=== PATIENT | female | born 1950 | race Asian ===

== ENCOUNTER 2025-04-27 06:53 | Observation (INO) ==
--- NOTE | 2025-04-23 16:12 | Anesthesiology Consultation ---
Date of Service April 23, 2025 Assessment & Plan (1) Encounter for pre-operative examination: - Check BSG DOS - Infectious disease screening: Per assessment on 04/23/25- No known recent infectious disease contacts or current infectious disease symptoms. Chart Review Chart Review: Acceptable Risk for Surgery and Patient NOT seen in Pre Admission Testing History Surgery Operation Date: 04/27/25 09:30 Proposed Procedures p Bilateral Mastectomies with Bilateral [place] Axillary Lymph Node Biopsies - Nic Sterling MD Height/Weight Height: 4 ft 9 in Weight: 81.647 kg Allergies Allergy/AdvReac Type Severity Reaction Status Date / Time No Known Allergies Allergy Verified 04/23/25 15:02 Medications Home Medications Medication Instructions Recorded Confirmed Last Taken allopurinol 100 mg tablet 100 mg PO DAILY 04/18/23 04/23/25 Unknown atorvastatin 10 mg tablet 10 mg PO DAILY 04/18/23 04/23/25 Unknown insulin aspart U-100 100 unit/mL See Rx Instructions .Route .COMPLEX 04/18/23 04/23/25 04/18/23 (3 mL) subcutaneous pen insulin glargine 100 unit/mL (3 20 unit subcut HS 04/18/23 04/23/25 Unknown mL) subcutaneous pen (Lantus Solostar U-100 Insulin) levothyroxine 50 mcg tablet 50 mcg PO DAILY 04/18/23 04/23/25 04/18/23 lisinopril 20 mg tablet 20 mg PO DAILY 04/18/23 04/23/25 Unknown omeprazole 40 mg capsule,delayed 40 mg PO DAILY 04/18/23 04/23/25 04/18/23 release furosemide 20 mg tablet 20 mg PO BID 01/05/25 04/23/25 Unknown metformin 500 mg tablet 500 mg PO BID 01/05/25 04/23/25 Unknown sodium hyaluronate (viscosup) 10 See Rx Instructions .Route .COMPLEX 01/05/25 04/23/25 Unknown mg/mL(mw 2.4-3.6 million)intra-articular syringe (Euflexxa) gabapentin 300 mg capsule 200 mg PO BID 02/15/25 04/23/25 Unknown aripiprazole 2 mg tablet 2 mg PO QAM 04/23/25 04/23/25 Unknown Past Medical History Medical History Anemia Anxiety and depression Arthritis Breast cancer new dx Carpal tunnel syndrome of left wrist DDD (degenerative disc disease), cervical GERD (gastroesophageal reflux disease) Hearing loss HTN (hypertension) Hyperlipidemia Hypothyroid Knee pain Lumbar radicular pain Lumbar radiculopathy Muscular deconditioning Pedal edema Peripheral edema PMR (polymyalgia rheumatica) Type 2 diabetes mellitus IDDM Past Surgical History Surgical History H/O breast biopsy History of cataract surgery Social History Smoking Status: Never smoker Do You Dip or Chew Tobacco: No Hx Alcohol Use: No Hx Substance Use: No Testing Laboratory Results 03/26/25 WBC 10.86 H/H 11.6/38.0 PLATELETS 367 SODIUM 138 POTASSIUM 4.4 CHLORIDE 97 CO2 26 BUN 24 CREATININE 1.1 GLUCOSE 105 Electrocardiogram Date: 10/30/24 SR with premature supraventricular complexes. 80bpm. Low voltage QRS, consider pulmonary disease, pericardial effusion, or normal variant. Chest X-Ray Date: 08/20/24 Mild pulmonary vascular congestion. No pleural effusion or pneumothorax.
[2025-04-27] MEDS ORDERED: ONDANSETRON INJ 2 MG/ML 2 ML VIAL ONE (07:42)
[2025-04-27] MEDS ORDERED: DEXAMETHASONE SOD INJ 4 MG/ML VIAL ONE (07:42)
[2025-04-27] MEDS ORDERED: ROCURONIUM BROMIDE 10 MG/ML 5 ML VIAL IV ONE (07:42)
[2025-04-27] MEDS ORDERED: PROPOFOL IV EMULSION 10 MG/ML 20 ML VIAL IV ONE (07:42)
[2025-04-27] MEDS ORDERED: SUGAMMADEX SODIUM 200 MG/2 ML VIAL IV ONE (07:43)
[2025-04-27] MEDS ORDERED: MIDAZOLAM HCL 1 MG/ML 2ML VIAL ONE (07:43)
[2025-04-27] MEDS: LACTATED RINGER'S 1,000 ML IV SCH (07:44)
--- NOTE | 2025-04-27 08:24 | History & Physical Bridge Note ---
Date of Service April 27, 2025 History & Physical Bridge Note I have examined the patient, reviewed the History & Physical and in the interval since the performance of the History & Physical I have noted the following changes of clinical significance: no changes noted
--- NOTE | 2025-04-27 09:54 | Nuclear Medicine Report ---
IR sentinel node inject only, IR sentinel node inject only CLINICAL HISTORY: BREAST CA RADIOPHARMACEUTICAL ADMINISTERED: 559.8 uCi technetium 99m lymphoseek was injected in 5 parts subdermally periareolar right breast. 568.8 uCi technetium 99 M. lymphoseek was injected in 5 parts subdermally periareolar left breast: COMPARISON STUDY: None FINDINGS: Both breasts were prepped in standard sterile fashion. The radiopharmaceutical was injected in 5 parts subdermally periareolar right breast. The radiopharmaceutical was injected in 5 parts sub dermally periareolar left breast. IMPRESSION: Bilateral breast lymphoscintigraphy. ACT 112: Negative or not required by law. Electronically signed by: Dave Carmona M.D. 04/27/2025 9:53 AM
[2025-04-27] MEDS ORDERED: PHENYLEPHRINE 100MCG/ML 5ML SYR ONE (10:03)
[2025-04-27] MEDS: BUPIVACAINE 0.5 % 5 MG/1 ML MPF 30ML VIAL ONE (11:43)
[2025-04-27] MEDS: BUPIVACAINE LIPOSOME 1.3% 266 MG/20 ML VIAL ONE (11:44)
--- NOTE | 2025-04-27 13:04 | Operative Report ---
Post Operative Report Pre & Post Diagnosis Operation Date: 04/27/25 09:30 Pre-Op Diagnosis: Malignant Neoplasm Upper Outer Quadrant Both Breast Post-Op Diagnosis: Malignant Neoplasm Upper Outer Quadrant Both Breast I identified the patient and participated in the time-out.: Yes Procedure Operation Date: 04/27/25 09:30 Actual Procedures p Bilateral Simple Mastectomy, Bilateral [place] Lymph Node Biopsy(Bilateral) - Nic Sterling MD Surgeon Nic Sterling MD Dry Pan Feeder MABEL Lucia assisted with tissue retraction, camera op, closure Estimated Blood Loss 15 Findings Consistent with Post-Op Diagnosis 2 sentinel lymph nodes removed on the left; 1 sentinel lymph node removed on the right Specimens #1. Left breast 2. Left sentinel lymph node, 132 count 3. Left sentinel lymph node #2, 25 count 4. Right breast 5. Right sentinel lymph node #1, 311 count 6. Additional right breast medial tissue 7. additional right breast inferior tissue Drains 2 #10 flat MAE drains Anesthesia Type General Complications none Description of Procedure patient was taken to the operating room, placed supine on the operating table. A timeout was performed, perioperative antibiotics were administered, SCD boots were placed. After adequate anesthesia and analgesia was obtained, the chest from neck to abdomen and from side of bed to side of bed was prepped and draped in the normal sterile fashion. Elliptical incisions were drawn out on the bilateral breast and measured. We began on the left side. Incision was made along the elliptical incision lines with a 15 blade scalpel and carried into the subcutaneous tissue. Using a traction countertraction technique with rakes and pressure, the breast tissue was dissected free from the above skin and subcutaneous tissue. This was done with the electrocautery. Small bleeders were taken with the harmonic scalpel. The limits of the dissection where the clavicle superiorly, the sternum medially, the rectus sheath fascia inferiorly, and the axillary fat pad laterally. Once the dissection was complete, the breast was removed from the underlying pectoralis major muscle with the electrocautery, taking care to remove the fascia. The breast was oriented with sutures and sent off the field for specimen. We then turned our attention to the left axilla. Using the neoprobe, we were able to identify a sentinel lymph node. . The count on the sentinel lymph node was 131. The lymphatics were taken with the harmonic scalpel. A second sentinel lymph node was identified and dissected free circumferentially and removed. The count on this node was 21. Further dissection within the axillary fat pad did not yield any further lymph nodes. The background radiation count was 8. Attention was turned to hemostasis, the wound was copiously irrigated and suctioned free. A 30 cc mixture of Exparel, bupivacaine, and saline was injected into the flaps and the underlying pectoralis major muscle. Again hemostasis was checked and attended to and was excellent. a 10 [place] flat MAE drain was placed through separate stab incision and secured with a 3-0 silk suture. The subcutaneous tissue was closed with interrupted 3-0 Vicryl. The skin was closed with a running 4-0 Monocryl subcuticular stitch. Dermabond was applied. We then turned our attention to the right side. Incision was made along the elliptical incision lines On the right sidewith a 15 blade scalpel and carried into the subcutaneous tissue. Using a traction countertraction technique with rakes and pressure, the breast tissue was dissected free from the above skin and subcutaneous tissue. This was done with the electrocautery. Small bleeders were taken with the harmonic scalpel. The limits of the dissection where the clavicle superiorly, the sternum medially, the rectus sheath fascia inferiorly, and the axillary fat pad laterally. Once the dissection was complete, the breast was removed from the underlying pectoralis major muscle with the electrocautery, taking care to remove the fascia. The breast was oriented with sutures and sent off the field for specimen. We then turned our attention to the right axilla. dissection and th e axillary fat pad yielded 1 sentinel lymph node with a count of 311. This was dissected free circumferentially and the lymphatics were taken with the harmonic scalpel. Further dissection within the axillary fat did not yield any further lymph nodes. The background count was 4. Attention was turned to hemostasis, the wound was copiously irrigated and suctioned free. A 30 cc mixture of Exparel, bupivacaine, and saline was injected into the flaps and the underlying pectoralis major muscle. Again hemostasis was checked and attended to and was excellent. A 10 [place] flat MAE drain was placed through a separate stab incision and secured with a 3-0 silk suture. The subcutaneous tissue was closed with interrupted 3-0 Vicryl. The skin was closed with a running 4-0 Monocryl subcuticular stitch. Dermabond was applied. Dressings were applied. the patient tolerated the procedure without complication was transferred in stable condition to the PACU. All instrument, needle, and sponge counts were correct at the end of the case. My graphic design assistant was necessary throughout the procedure for tissue retraction, possible camera operation, and closure of the wounds. I understand that section 1842(b)(7)(D) of the Social Security act generally prohibits Medicare physician fee schedule payment for the services of assistants at surgery in teaching hospitals when qualified residents are available to furnish such services. I certify that the services for which payment is claimed were medically necessary and that no qualified resident was available to perform the services. I further understand that these services are subject to postpayment review by the Medicare carrier. I attest to the content of the Intraoperative Record and any orders documented therein. Any exceptions are noted below.
[2025-04-27] MEDS: ONDANSETRON INJ 2 MG/ML 2 ML VIAL IV PRN (13:28)
[2025-04-27] MEDS ORDERED: ATROPINE SULFATE 0.1 MG/ML 10ML SYR IV PRN (13:31)
[2025-04-27] MEDS ORDERED: DEXAMETHASONE SOD INJ 4 MG/ML VIAL IV PRN (13:31)
[2025-04-27] MEDS ORDERED: HYDROmorphone INJ 2 MG/ML SYR/VIAL IV PRN (13:31)
--- NOTE | 2025-04-27 13:32 | Consultation ---
Date of Consultation April 27, 2025 Assessment & Plan (1) Breast cancer: (2) S/P bilateral mastectomy: (3) Anemia: (4) Type 2 diabetes mellitus: (5) HTN (hypertension): (6) Hyperlipidemia: (7) Hypothyroid: (8) GERD (gastroesophageal reflux disease): (9) Anxiety and depression: Plan 74 year old female with PMH significant for type 2 diabetes, dyslipidemia, hypothyroidism, hypertension, diastolic dysfunction, obesity, GERD, CKD IIIa, PMR, osteoarthritis, lumbar DDD, senile osteoporosis, polyneuropathy, anemia, depression, and infiltrating ductal carcinoma of the left breast who is s/p bilateral mastectomy and bilateral sentinel lymph node biopsy by Dr Nic Sterling on 04/27/2025. We have been consulted for post operative medical management. Infiltrating ductal carcinoma of left breast s/p bilateral mastectomy and bilateral sentinel lymph node biopsy POD#0 bilateral mastectomy and bilateral sentinel lymph node biopsy by Dr Nic Sterling on 04/27/2025 Activity level, pain control, DVT prophylaxis, bowel regimen per primary team *see HPI for details of breast cancer diagnosis* Anemia Monitor post op labs for acute blood loss anemia Preop Hgb 11.6 EBL 15mL Monitor MAE drain output Type 2 diabetes A1C 7.2 in Aug 2024 On metformin and insulin at home BSG ACHS and SSI while inpatient Glycemic pharmacy consult Hypertension Continue lisinopril and lasix Hyperlipidemia Continue atorvastatin Hypothyroidism Continue levothyroxine GERD Continue PPI and pepcid Depression/anxiety Continue aripiprazole CKD III Baseline creat appears to be around 1.1 per record review Monitor BMP in am DVT Prophylaxis: SQ lovenox and SCDs per primary team Code Status: FULL CODE PCP: Jo Sainz Patient seen in collaboration with Dr Neff. Please see addendum. I spent a total of 70 minutes coordinating, documenting and providing care for this patient excluding time spent in the performance of separately billed services or time spent by another provider/QHP. Thank you for this consultation. We will continue to follow this patient with you. [facility] available [facility] via the role in [employer] - please don't hesitate to reach out with questions. Supervising Physician Co-Signing Physician Notes Attending Addendum: Case reviewed with the advanced practitioner. I have personally performed a history and physical examination on the patient. I have reviewed the advanced practitioner's documentation on the date of service referenced in note, and I agree with, and take responsibility for the plan of care. please refer to her notes for full details patient seen and examined, records reviewed by myself as well on exam, patient seen resting in bed, daughter in law assisting with translation states she feels fine overall surgical site pain adequately controlled reports L sided abdominal discomfort last BM yesterday no nausea/vomiting, chills no other symptoms VS noted and reviewed oriented x3, not in distress, speaks in sentences with no effort nor accessory muscle use normal rate, regular rhythm, no murmurs clear breath sounds bilaterally non distended, soft, (+) mild L quadrant tenderness no bipedal edema, erythema, warmth no neuro deficits all labs, imaging noted and reviewed ASSESSMENT AND PLAN> diagnoses and plan of care as per advanced practitioner's notes, with addendum as follows: Mild OZIEL hold Lisinopril encouraged to increase oral fluid intake Left sided abdominal pain CT abdomen: no acute findings bowel regimen daily Abnormal CT findings coronary artery calcifications cholelithiasis Further work up, management, and ff up as outpatient I spent a total of 40 minutes coordinating, documenting, and providing care for this patient, excluding time spent in the performance of separately billed services or time spent by another provider/QHP. Michael Neff MD History of Present Illness Requesting Physician: Nic Sterling MD Reason for Consultation: Post operative medical management Attending Physician: Nic Sterling MD History of Present Illness 74 year old female with PMH significant for type 2 diabetes, dyslipidemia, hypothyroidism, hypertension, diastolic dysfunction, obesity, GERD, CKD IIIa, PMR, osteoarthritis, lumbar DDD, senile osteoporosis, polyneuropathy, anemia, depression, and infiltrating ductal carcinoma of the left breast who is s/p bilateral mastectomy and bilateral sentinel lymph node biopsy by Dr Nic Sterling on 04/27/2025. We have been consulted for post operative medical management. Breast cancer diagnosis: Underwent bilateral breast screening mammogram in January 2025 which revealed left breast asymmetry changes. Underwent left breast diagnostic mammogram which revealed carcinoma of left upper outer quadrant. Underwent core biopsy which demonstrated intermediate grade invasive ductal carcinoma. Referred to Surgery Dr Nic Sterling by PCP. Underwent second look ultrasound and biopsy which revealed a second infiltrating ductal carcinoma in left upper outer quadrant. Underwent breast MRI on 04/01/2025 which revealed a mass in the right inner quadrant that was biopsied and also determined to be invasive ductal carcinoma. Dr Sterling referred to Heme Onc Dr Ovidio Vanegas who recommended surgical intervention with Dr. Nic Sterling with plan to follow up 2 weeks after surgery to discuss adjuvant treatment options. Patient was seen in her inpatient room post operatively. History obtained with assistance of patient's daughter in law, who was able to translate as patient speaks Mavis. She is complaining of pain at her breasts, fatigue, and nausea. Denies dizziness, lightheadedness, chest pain, SOB, abdominal pain. Allergies Allergy/AdvReac Type Severity Reaction Status Date / Time No Known Allergies Allergy Verified 04/27/25 07:05 Home Medications Medication Instructions Recorded Confirmed Type allopurinol 100 mg tablet 100 mg PO DAILY 04/18/23 04/27/25 History atorvastatin 10 mg tablet 10 mg PO DAILY 04/18/23 04/27/25 History insulin aspart U-100 100 unit/mL See Rx Instructions .Route .COMPLEX 04/18/23 04/27/25 History (3 mL) subcutaneous pen insulin glargine 100 unit/mL (3 20 unit subcut HS 04/18/23 04/27/25 History mL) subcutaneous pen (Lantus Solostar U-100 Insulin) levothyroxine 50 mcg tablet 75 mcg PO DAILY 04/18/23 04/27/25 History lisinopril 20 mg tablet 20 mg PO DAILY 04/18/23 04/27/25 History omeprazole 40 mg capsule,delayed 40 mg PO DAILY 04/18/23 04/27/25 History release furosemide 20 mg tablet 20 mg PO BID 01/05/25 04/27/25 History metformin 500 mg tablet 500 mg PO BID 01/05/25 04/27/25 History sodium hyaluronate (viscosup) 10 See Rx Instructions .Route .COMPLEX 01/05/25 04/27/25 History mg/mL(mw 2.4-3.6 million)intra-articular syringe (Euflexxa) gabapentin 300 mg capsule 200 mg PO BID 02/15/25 04/27/25 History aripiprazole 2 mg tablet 2 mg PO QAM 04/23/25 04/27/25 History albuterol sulfate 90 mcg/actuation 2 puff inhalation Q4 PRN Wheezing 04/27/25 04/27/25 History aerosol inhaler cholecalciferol (vitamin D3) 50 50 mcg PO DAILY 04/27/25 04/27/25 History mcg (2,000 unit) capsule famotidine 20 mg tablet 20 mg PO HS 04/27/25 04/27/25 History Patient History Medical History (Updated 04/27/25 @ 13:52 by JAKI Shin) Lumbar radiculopathy Severe muscle deconditioning Bilateral sacroiliitis Myofascial pain syndrome of lumbar spine Encounter for pre-operative examination Muscular deconditioning Lumbar radiculopathy Arthritis Hearing loss Peripheral edema Carpal tunnel syndrome of left wrist PMR (polymyalgia rheumatica) DDD (degenerative disc disease), cervical Knee pain Lumbar radicular pain Pedal edema Surgical History (Updated 04/27/25 @ 13:53 by JAKI Shin) History of decompression of ulnar nerve History of colonoscopy History of esophagogastroduodenoscopy (EGD) History of epidural steroid injection into lumbar spine History of carpal tunnel surgery History of cataract surgery H/O breast biopsy Family History (Updated 04/27/25 @ 13:53 by JAKI Shin) Mother Diabetes Father Diabetes Son Hypertension Social History Smoking Status: Never smoker Second Hand Exposure: No; Do You Dip or Chew Tobacco: No; Tobacco Cessation Education Requested by Patient: No Hx Alcohol Use: No Hx Substance Use: No Preferred Language: Mavis Communication Ability: no Uzbek Communication Ability Comment: will need pre school manager services and family members will be present to transl Communication Tools: IPad, Facial Expression, Physical Gestures and Other Hearing Ability: Normal Executive Officer [employer] Team Required: Yes Beliefs That Will Affect Care: None marital status: / Current Living Situation: Family current occupational status: unemployed Other Information That Helps Us Care for You: No Feels Safe at Home: Yes Safety Concerns: Feels Safe At This Time Assistive Devices: Denture - Lower, Hearing Aid - Bilateral and Walker Review of Systems Review of Systems: All systems reviewed & are unremarkable except as noted in HPI & below Physical Exam Physical Exam: General/Psych: WD/WN, sitting up in bed, appears uncomfortable Head: normocephalic, atraumatic Eyes: normal inspection, PERRL, conjunctivae pink ENT: external ear and nose normal, oropharynx normal Neck: normal visual inspection, trachea midline Respiratory: normal respiratory effort, lungs clear to auscultation, no wheeze/rales/rhonchi, no accessory muscle use Cardiovascular: regular rate and rhythm, no murmur/rub/gallop, no JVD Extremities: no cyanosis or clubbing, normal peripheral pulses, no BLE edema, SCDs in place Abdomen/GI: normal bowel sounds, soft, nontender, rounded Neurologic/MSK: A+Ox3, motor strength 5/5, moves all extremities Skin: no rashes, normal color, warm and dry, surgical bra in place with dressing c/d/i, MAE drains with sanguinous drainge Results & Data Vital Signs (Past 12 Hours) Vital Signs Temp Pulse Resp BP Pulse Ox O2 Del Method 04/27/25 07:14 37.0 C 78 20 145/83 H 99 Room Air (3) Anemia Anemia type: unspecified type Qualified Code(s): D64.9 - Anemia, unspecified
[2025-04-27] MEDS: PROMETHAZINE HCL 6.25 MG in SODIUM CHLORIDE 0.9% 50 ML IV PRN (13:44)
[2025-04-27] MEDS: ONDANSETRON INJ 2 MG/ML 2 ML VIAL ONE (13:55)
[2025-04-27] MEDS: SODIUM CHLORIDE 0.9% 50 ML BAG ONE (13:57)
[2025-04-27] MEDS: ACETAMINOPHEN 1,000 MG/100 ML VIAL IV STA (14:05)
[2025-04-27] MEDS: PROMETHAZINE HCL INJ 25 MG/ML 1 ML VIAL ONE (14:16)
[2025-04-27] MEDS ORDERED: diphenhydrAMINE Capsule 25 MG CAP PO PRN (15:02)
[2025-04-27] MEDS ORDERED: MoRPHine SULFATE 2 MG/ML CARP IV PRN (15:02)
[2025-04-27] MEDS ORDERED: PROMETHAZINE 12.5 MG/50.5 ML BAG IV PRN (15:02)
[2025-04-27] MEDS ORDERED: KETOROLAC TROMETHAMINE 15 MG/ML VIAL IV PRN (15:02)
[2025-04-27] MEDS ORDERED: ONDANSETRON INJ 2 MG/ML 2 ML VIAL IV PRN (15:02)
[2025-04-27] MEDS: MoRPHine SULFATE 4 MG/ML 1 ML CARP\\VIAL IV PRN (15:13)
[2025-04-27] MEDS ORDERED: ALBUTEROL HFA 8 GM INHALER INH PRN (15:45)
[2025-04-27] MEDS ORDERED: GLUCOSE 40% GEL 15 GM TUBE PO PRN (15:46)
[2025-04-27] MEDS ORDERED: GLUCAGON FOR INJ 1 MG VIAL SQ PRN (15:46)
[2025-04-27] MEDS ORDERED: PHARMACY GLYCEMIC MGMT CONSULT PRN (15:46)
[2025-04-27] MEDS ORDERED: GLUCOSE 10 TAB/TUBE PO PRN (15:46)
[2025-04-27] MEDS ORDERED: DEXTROSE 50% 50 ML SYRINGE IV PRN (15:46)
[2025-04-27] MEDS ORDERED: CARBOHYDRATES FOR HYPOGLYCEMIA PO PRN (15:46)
[2025-04-27 16:07] LABS: Creatinine Clr Calc Pharmacy 35.1 ml/min
[2025-04-27] MEDS: INSULIN ASPART PER UNIT CHARGE SC SCH (17:52)
[2025-04-27] MEDS: COUGH DROP (SUGAR FREE) LOZ 24 LOZ/1 BOX BUCCAL ONE (17:56)
[2025-04-27] MEDS: LANTUS PER UNIT CHARGE SC SCH (21:43)
[2025-04-27] MEDS: GABAPENTIN 100 MG CAP PO SCH (21:45)
[2025-04-27] MEDS: FAMOTIDINE 20 MG TAB PO SCH (21:45)
[2025-04-27] MEDS: FUROSEMIDE 20 MG TAB PO SCH (21:45)
--- NOTE | 2025-04-27 22:50 | CT Scan Report ---
Exam(s): CT ABDOMEN + PELVIS Without Contrast EXAM: CT Abdomen and Pelvis Without Intravenous Contrast CLINICAL HISTORY: Reason for exam: Left abdominal pain, tenderness. TECHNIQUE: Axial computed tomography images of the abdomen and pelvis without intravenous contrast. CTDI is 25.83 mGy and DLP is 1208.53 mGy-cm. Automated exposure control was utilized for the study. A dose lowering technique was utilized adhering to the principles of ALARA. COMPARISON: No relevant prior studies available. FINDINGS: Lung bases: Unremarkable. No mass. No consolidation. Heart: Coronary artery calcifications. ABDOMEN: Liver: Unremarkable. Gallbladder and bile ducts: Cholelithiasis without evidence acute cholecystitis. No ductal dilation. Pancreas: Unremarkable. No ductal dilation. Spleen: Unremarkable. No splenomegaly. Adrenals: Unremarkable. No mass. Kidneys and ureters: Unremarkable. No obstructing stones. No hydronephrosis. Stomach and bowel: Moderate amount of stool within the colon. No obstruction. No mucosal thickening. PELVIS: Appendix: No findings to suggest acute appendicitis. Bladder: Unremarkable. No stones. Reproductive: Unremarkable as visualized. 2.8 cm right ovarian cysts versus follicles ABDOMEN and PELVIS: Intraperitoneal space: Unremarkable. No free air. No significant fluid collection. Bones/joints: No acute fracture. No dislocation. Soft tissues: Surgical drains in the subcutaneous soft tissues overlying the right and left lateral chest fernandez incompletely evaluated on this exam. Vasculature: See above. Lymph nodes: Unremarkable. No enlarged lymph nodes. IMPRESSION: No acute findings in the abdomen or pelvis. Cholelithiasis without evidence acute cholecystitis Electronically signed by: Maurice Emerson MD 04/27/25 22:49 PM
[2025-04-28] MEDS: INSULIN ASPART PER UNIT CHARGE SC SCH (00:40)
[2025-04-28 03:57] VITALS: PULSE 71
[2025-04-28] MEDS: LEVOTHYROXINE SODIUM 75 MCG TABLET PO SCH (06:10)
[2025-04-28] MEDS: ENOXAPARIN INJ 40 MG/0.4 ML SYR SQ SCH (06:11)
[2025-04-28 07:27] VITALS: BP 119/71; RESP 16; TEMP 98.1; O2SAT 97
[2025-04-28 07:44] LABS: Hematocrit (blood only) 28.2 % (37.0-47.0); Hemoglobin 9.0 g/dl (12.0-16.0); Mean Corpuscular Hemoglobin 26.7 pg (25.0-34.0); Mean Corpuscular Volume 83.7 fL (80.0-100.0); Platelet Count 351 K/uL (130-400); RDW Standard Deviation 45.5 fL (36.4-46.3); Red Blood Count 3.37 M/uL (4.20-5.40); White Blood Count 10.12 K/ul (4.8-10.8)
[2025-04-28 08:10] LABS: Anion Gap 6.0 (3-11); Blood Urea Nitrogen 21.0 mg/dl (6-23); Calcium 7.9 mg/dl (8.6-10.3); Carbon Dioxide 27.0 mmol/L (21-32); Chloride 102.0 mmol/L (98-107); Creatinine Clr Calc Pharmacy 43.5 ml/min; Glucose 131.0 mg/dl (70-99(Fasting)); Potassium 4.0 mmol/L (3.5-5.1); Sodium 135.0 mmol/L (136-145)
[2025-04-28] MEDS: ATORVASTATIN 10 MG TAB PO SCH (08:20)
[2025-04-28] MEDS: CHOLECALCIFEROL 25 MCG (1000 UNITS) TAB PO SCH (08:20)
[2025-04-28] MEDS: POLYETHYLENE (MIRALAX) 17 GM PACK PO SCH (09:29)
--- NOTE | 2025-04-28 10:37 | Pharmacy Report ---
Pharmacy Glycemic Short Note 2 - Date of Service April 28, 2025 - Glycemic Short BSG Results (Last 24 hours): 04/27/25 04/27/25 04/27/25 14:01 16:58 21:29 Glucose POC Glucose 204 H 233 H 288 H 04/28/25 04/28/25 04/28/25 00:08 00:10 03:45 Glucose POC Glucose 371 H* 370 H* 262 H 04/28/25 04/28/25 07:11 07:42 Glucose 131 H POC Glucose 126 H OUTPATIENT ANTIDIABETIC REGIMEN: * Lantus 20 UNITS SQ HS * NovoLog 14 units with breakfast, 20 units with lunch, 22 units with dinner * metformin 500mg BID * HbA1c 7.2% (09/22), 8.7% (05/16/22) ASSESSMENT: * Jacki is a 74 year old female admitted status post bilateral mastectomy POD #1 with a history of type 2 diabetes mellitus. Pharmacy has been consulted to assist with glycemic management while inpatient. * Preoperative BSG yesterday AM controlled, dexamethasone 4mg IV given perioperatively, BSGs climbed throughout the evening with diet addition. Home dose of Lantus given yesterday evening overnight checks returned BSGs to normal. Will continue a basal scale at bedtime. * NovoLog tightened to a weight based stress of 3, will loosen throughout the day as steroid effects wear off. PLAN FOR INPATIENT GLYCEMIC CONTROL: * Hold outpatient oral diabetes medications * Basal insulin * Lantus 10-20 units SQ HS * Bolus insulin * NovoLog per scale ACHS or Q6hrs while NPO * Goal Range: Low 110 mg/dL - High 140 mg/dL * Correction Factor: 20 mg/dL/unit * Nutritional / Prandial insulin per carb ratio of 1 unit per 7 grams CHO consumed
--- NOTE | 2025-04-28 11:10 | Hospitalist Progress Note ---
Date of Service April 28, 2025 Assessment & Plan (1) Breast cancer: (2) S/P bilateral mastectomy: (3) Anemia: (4) Type 2 diabetes mellitus: (5) HTN (hypertension): (6) Hyperlipidemia: (7) Hypothyroid: (8) GERD (gastroesophageal reflux disease): (9) Anxiety and depression: Plan 74 year old female with PMH significant for type 2 diabetes, dyslipidemia, hypothyroidism, hypertension, diastolic dysfunction, obesity, GERD, CKD IIIa, PMR, osteoarthritis, lumbar DDD, senile osteoporosis, polyneuropathy, anemia, depression, and infiltrating ductal carcinoma of the left breast who is s/p bilateral mastectomy and bilateral sentinel lymph node biopsy by Dr Nic Sterling on 04/27/2025. We have been consulted for post operative medical management. Infiltrating ductal carcinoma of left breast s/p bilateral mastectomy and bilateral sentinel lymph node biopsy *see HPI for details of breast cancer diagnosis* POD#1 bilateral mastectomy and bilateral sentinel lymph node biopsy by Dr Nic Sterling on 04/27/2025 Encouraged bowel regimen if taking pain medicine at home Discharge today Acute blood loss anemia EBL 15mL Preop Hgb 11.6-> 9 Hemodynamics stable and patient asymptomatic Type 2 diabetes A1C 7.2 in Aug 2024 Resume metformin and insulin at home Hypertension Continue lisinopril and lasix Hyperlipidemia Continue atorvastatin Hypothyroidism Continue levothyroxine GERD Continue PPI and pepcid Depression/anxiety Continue aripiprazole CKD III Creat at baseline DVT Prophylaxis: SQ lovenox and SCDs per primary team Code Status: FULL CODE PCP: Jo Sainz Disposition: dc to home today Patient seen in collaboration with Dr Fulton. Please see addendum. I spent a total of 45 minutes coordinating, documenting and providing care for this patient excluding time spent in the performance of separately billed services or time spent by another provider/QHP. Thank you for this consultation. We will continue to follow this patient with you. A member of the [facility] Hospitalist team is available 22/04 via the role in [employer] - please don't hesitate to reach out with questions. Admission and Anticipated Discharge Date Admission Date: April 27, 2025 Supervising Physician Co-Signing Physician Notes Patient seen and examined Agree with findings and plans as detailed by Basia POLLACK Subjective Patient seen sitting in the chair Daughter in law at bedside Reports she is doing well and has no pain Denies chest pain, SOB, abdominal pain, N/V, weakness Discharge today Review of Systems Review of Systems: All systems reviewed & are unremarkable except as noted in Subjective Physical Exam Physical Exam: General/Psych: WD/WN, sitting up in chair, NAD Head: normocephalic, atraumatic Eyes: normal inspection, PERRL, conjunctivae pink ENT: external ear and nose normal, oropharynx normal Neck: normal visual inspection, trachea midline Respiratory: normal respiratory effort, lungs clear to auscultation, no wheeze/rales/rhonchi, no accessory muscle use Cardiovascular: regular rate and rhythm, no murmur/rub/gallop, no JVD Extremities: no cyanosis or clubbing, normal peripheral pulses, no BLE edema, SCDs in place Abdomen/GI: normal bowel sounds, soft, nontender, rounded Neurologic/MSK: A+Ox3, motor strength 5/5, moves all extremities Skin: no rashes, normal color, warm and dry, surgical bra in place with dressing c/d/i, MAE drains with sanguinous drainage Results & Data Results & Data Vital Signs (Past 12 Hours) Vital Signs Temp Pulse Resp BP Pulse Ox O2 Del Method 04/28/25 08:20 Room Air 04/28/25 07:25 36.7 C 71 16 119/71 97 Room Air 04/28/25 03:56 36.5 C 71 18 130/71 98 Room Air 04/28/25 00:23 36.6 C 75 18 123/66 96 Room Air Laboratory Results Short CBC 04/28/25 Range/Units 07:11 WBC 10.12 (4.8-10.8) K/ul Hgb 9.0 L (12.0-16.0) g/dl Hct 28.2 L (37.0-47.0) % Plt Count 351 (130-400) K/uL BMP 04/27/25 04/28/25 15:27 07:11 Sodium 135 L Potassium 4.0 Chloride 102 Carbon Dioxide 27 BUN 21 Creatinine 1.24 H 1.00 Glucose 131 H Calcium 7.9 L I have independently reviewed and interpreted patient's labs including CBC and BMP. Diagnostic Findings Abdomen/Pelvis CT 04/27/25 20:39 Exam(s): CT ABDOMEN + PELVIS Without Contrast EXAM: CT Abdomen and Pelvis Without Intravenous Contrast CLINICAL HISTORY: Reason for exam: Left abdominal pain, tenderness. TECHNIQUE: Axial computed tomography images of the abdomen and pelvis without intravenous contrast. CTDI is 25.83 mGy and DLP is 1208.53 mGy-cm. Automated exposure control was utilized for the study. A dose lowering technique was utilized adhering to the principles of ALARA. COMPARISON: No relevant prior studies available. FINDINGS: Lung bases: Unremarkable. No mass. No consolidation. Heart: Coronary artery calcifications. ABDOMEN: Liver: Unremarkable. Gallbladder and bile ducts: Cholelithiasis without evidence acute cholecystitis. No ductal dilation. Pancreas: Unremarkable. No ductal dilation. Spleen: Unremarkable. No splenomegaly. Adrenals: Unremarkable. No mass. Kidneys and ureters: Unremarkable. No obstructing stones. No hydronephrosis. Stomach and bowel: Moderate amount of stool within the colon. No obstruction. No mucosal thickening. PELVIS: Appendix: No findings to suggest acute appendicitis. Bladder: Unremarkable. No stones. Reproductive: Unremarkable as visualized. 2.8 cm right ovarian cysts versus follicles ABDOMEN and PELVIS: Intraperitoneal space: Unremarkable. No free air. No significant fluid collection. Bones/joints: No acute fracture. No dislocation. Soft tissues: Surgical drains in the subcutaneous soft tissues overlying the right and left lateral chest fernandez incompletely evaluated on this exam. Vasculature: See above. Lymph nodes: Unremarkable. No enlarged lymph nodes. IMPRESSION: No acute findings in the abdomen or pelvis. Cholelithiasis without evidence acute cholecystitis Electronically signed by: Maurice Emerson MD 04/27/25 22:49 PM Medications Administered Current Inpatient Medications Albuterol (Albuterol Hfa 8 Gm Inhaler) 2 puffs INH Q4R PRN PRN Reason: Wheezing Stop: 05/27/25 15:44 Allopurinol (Allopurinol 100 Mg Tab) 100 mg PO DAILY RADAMES Stop: 05/28/25 08:59 Last Admin: 04/28/25 08:20 Dose: 100 mg Aripiprazole (Aripiprazole 2 Mg Tab) 2 mg PO QAM RADAMES Stop: 05/28/25 08:59 Last Admin: 04/28/25 08:21 Dose: 2 mg Atorvastatin Calcium (Atorvastatin 10 Mg Tab) 10 mg PO DAILY RADAMES Stop: 05/28/25 08:59 Last Admin: 04/28/25 08:20 Dose: 10 mg Bisacodyl (Bisacodyl 5 Mg Tabec) 5 mg PO NOW PRN PRN Reason: Constipation Stop: 05/28/25 09:19 Last Admin: 04/28/25 09:29 Dose: 5 mg Dextrose (Dextrose 50% 50 Ml Syringe) 25 - 50 ml IV UD PRN; Protocol PRN Reason: Hypoglycemia Protocol Stop: 05/27/25 15:45 Diphenhydramine HCl (Diphenhydramine Capsule 25 Mg Cap) 25 mg PO Q4H PRN PRN Reason: hives, itching or insomnia Stop: 05/27/25 15:01 Enoxaparin Sodium (Enoxaparin Inj 40 Mg/0.4 Ml Syr) 40 mg SQ Q24H RADAMES Stop: 05/28/25 06:59 Last Admin: 04/28/25 06:11 Dose: 40 mg Famotidine (Famotidine 20 Mg Tab) 20 mg PO HS RADAMES Stop: 05/27/25 20:59 Last Admin: 04/27/25 21:45 Dose: 20 mg Furosemide (Furosemide 20 Mg Tab) 20 mg PO BID RADAMES Stop: 05/27/25 20:59 Last Admin: 04/28/25 08:20 Dose: 20 mg Gabapentin (Gabapentin 100 Mg Cap) 200 mg PO BID RADAMES Stop: 05/27/25 20:59 Last Admin: 04/28/25 08:20 Dose: 200 mg Glucagon (Glucagon For Inj 1 Mg Vial) 1 mg SQ UD PRN; Protocol PRN Reason: Hypoglycemia Protocol Stop: 05/27/25 15:45 Glucose (Glucose 40% Gel 15 Gm Tube) 15 - 30 gm PO UD PRN; Protocol PRN Reason: Hypoglycemia Protocol Stop: 05/27/25 15:45 Glucose (Glucose 10 Tab/Tube) 4 - 8 tab PO UD PRN; Protocol PRN Reason: Hypoglycemia Protocol Stop: 05/27/25 15:45 Promethazine HCl (Phenergan) 12.5 mg in 50.5 mls @ 202 mls/hr IV Q6H PRN PRN Reason: Nausea And Vomiting Stop: 05/27/25 15:01 Insulin Aspart (Insulin Aspart Per Unit Charge) 0 units SC ACHS RADAMES Stop: 05/27/25 16:29 Last Admin: 04/28/25 08:21 Dose: 5 units Insulin Glargine (Lantus Per Unit Charge) 0 units SC HS RADAMES; Protocol Stop: 05/27/25 20:59 Ketorolac Tromethamine (Ketorolac Tromethamine 15 Mg/Ml Vial) 15 mg IV Q6H PRN PRN Reason: Pain & Pre PT Stop: 05/02/25 15:01 Levothyroxine Sodium (Levothyroxine Sodium 75 Mcg Tablet) [facility] Stop: 05/28/25 06:29 Last Admin: 04/28/25 06:10 Dose: 75 mcg Lisinopril (Lisinopril 20 Mg Tab) 20 mg PO DAILY [facility] Stop: 05/28/25 08:59 Last Admin: 04/28/25 09:29 Dose: 20 mg Miscellaneous (Carbohydrates For Hypoglycemia ) 15 - 30 gm PO UD PRN PRN Reason: Hypoglycemia Protocol Stop: 05/27/25 15:45 Miscellaneous Information (Pharmacy Glycemic Mgmt Consult) 1 each N/A UD PRN PRN Reason: Consult Stop: 05/27/25 15:45 Morphine Sulfate (Morphine Sulfate 2 Mg/Ml Carp) 2 mg IV Q3H PRN PRN Reason: Pain (1,2,3,4,5) & Pre PT Stop: 05/11/25 15:01 Morphine Sulfate (Morphine Sulfate 4 Mg/Ml 1 Ml Carp\Vial) 4 mg IV Q3H PRN PRN Reason: Pain (6,7,8,9,10) Stop: 05/11/25 15:01 Last Admin: 04/27/25 15:13 Dose: 4 mg Ondansetron HCl (Ondansetron Inj 2 Mg/Ml 2 Ml Vial) 4 mg IV Q4H PRN PRN Reason: Nausea And Vomiting Stop: 05/27/25 15:01 Oxycodone/Acetaminophen (Oxycodone/Acetaminophen 5mg/325mg Tab) 1 tab PO Q4H PRN PRN Reason: MODERATE Pain (4,5,6) & Pre PT Stop: 05/11/25 15:01 Oxycodone/Acetaminophen (Oxycodone/Acetaminophen 5mg/325mg Tab) 2 tab PO Q4H PRN PRN Reason: SEVERE Pain (7,8,9,10) Stop: 05/11/25 15:01 Pantoprazole Sodium (Pantoprazole 40 Mg Tab) 40 mg PO DAILY [facility] Stop: 05/28/25 08:59 Last Admin: 04/28/25 08:20 Dose: 40 mg Polyethylene Glycol (Polyethylene (Miralax) 17 Gm Pack) 17 gm PO DAILY RADAMES Stop: 05/28/25 09:29 Last Admin: 04/28/25 09:29 Dose: 17 gm Vitamin D (Cholecalciferol 25 Mcg (1000 Units) Tab) 50 mcg PO DAILY RADAMES Stop: 05/28/25 08:59 Last Admin: 04/28/25 08:20 Dose: 50 mcg (3) Anemia Anemia type: unspecified type Qualified Code(s): D64.9 - Anemia, unspecified
--- NOTE | 2025-04-28 11:34 | Discharge Summary ---
Date of Service April 28, 2025 Admission HPI Per Admitting Provider Patient presented to [facility] for elective bilateral mastectomy with bilateral sentinel lymph node biopsy for bilateral breast cancer. Principal Diagnosis Bilateral breast cancer Discharge Exam Constitutional WD/WN, vitals as above cooperative and comfortable; no acute distress and not ill appearing Respiratory normal respiratory effort; no respiratory distress Chest (Breasts) Additional Comments: mastectomy bra intact, dressing intact. jeevan drains x 2 with bloody serosanguineous output. Moderate tenderness to palpation. Skin no rashes, warm and dry Psychiatric Orientation: alert and oriented x 3 Discharge Data Allergies Allergy/AdvReac Type Severity Reaction Status Date / Time No Known Allergies Allergy Verified 04/27/25 07:05 Consultations 04/27/25 15:02 Consult Hospitalist Routine Procedures Performed Operation Date: 04/27/25 09:30 Actual Procedures p Bilateral Simple Mastectomy, Bilateral [place] Lymph Node Biopsy(Bilateral) - Nic Sterling MD Ordered Studies 04/27/25 05:00 US - OR guided needle placemen Routine 04/27/25 20:39 CT Abd and Pelvis [CT abd pelvis wo con] Stat Hospital Course (1) S/P bilateral mastectomy: (2) Bilateral breast cancer: Plan Patient taken to operating room for bilateral mastectomy with bilateral sentinel lymph node biopsy. Patient tolerated procedure without difficulty. She was straight cathed after procedure given length of procedure. She was transferred to recovery then to medical /surgical floor for postop care. Diet advanced as tolerated, pain management as needed. Patient was able to tolerate diet, pain controlled, ambulated to bathroom, urinated on own postprocedure without difficulty. Jeevan drains with minimal output and hemoglobin stable. Patient was discharged home on POD # 1 in stable condition. Total Time Total Time Spent Total Time Spent (In Minutes): 20 Total Time Includes: Examination of the Patient, Discharge Planning and Medication Reconciliation Discharge Plan Discharge Items Patient Disposition: Home - Self-Care Reason For Visit: BREAST CANCER S/P MASTECTOMY Discharge Diagnosis: Bilateral breast cancer s/p bilateral mastectomy Activity: Per Instructions section Non-emergency contact: Primary Care Provider and Surgeon Call non-emergency contact if: you have any medication questions, your pain is not controlled, your pain is worsening, you have a fever, your temperature is above 101, your wound has increased redness, your wound has increased drainage and your wound pain has increased Follow-up/Referrals: Nic Sterling MD [Physician] - (Date & Time 05/12/2025 10:45 AM Provider: Nic Sterling MD General Surgery, [facility] ) Jo Sainz DO [Primary Care Provider] - (Date & Time 05/04/2025 2:00 PM Provider: Jo Sainz DO Family Practice [facility] ) Diet: Regular Addtl Attending Provider Instructions: MEDICATIONS: Resume previous medications unless instructed otherwise by your surgeon. * Percocet 5/325 mg one tablet every 6 hours as needed for moderate to severe pain. Can alternate extra strength Tylenol and Ibuprofen as needed for mild to moderate pain * Ibuprofen 600 mg every 6 hours as needed for pain. (take with food) * Tylenol 650 mg every 6 hours as needed for mild pain * may take over the counter stool softener Colace while taking narcotic pain medication to prevent constipation or straining. drink plenty of water daily. SPECIAL CARE INSTRUCTIONS: * Wear bra day and night until seen in office. * Remove outer gauze dressing tomorrow morning. you do not have to replace. Replace drain sponges around drain sites daily. * May shower in 24 hours. Let water hit your back and sponge bath on the chest and around the drain sites. * record drain output daily and empty drain as needed to keep the bulb to suction. You may need to strip the drain if there is any blockage in the drain tubing. Drains will be removed once there is less than 20 cc /day for two consecutive days. Call office once this occurs and they will schedule you for drain removal. * Leave surgical glue on incisions, this will fall off on its own. Do not pick at it as this can cause infection. * Call the surgeon's office with any questions or concerns - (ex. temperature higher than 101 degrees F, excessive bleeding or pain). EXERCISE/LIFTING No heavy lifting over 10 pounds for at least 2 weeks. I have sent you a [employer] messenger through [employer] with instructions for some exercises with pictures. Exercises After Breast Surgery As you recover from breast surgery, you can begin exercising as your body tolerates (typically about 48-72 hours after surgery). Your goal will be to regain normal range of motion and use of your arm. If anything is uncomfortable or causes pain, do not proceed further until after your postop visit FOLLOW UP VISIT: If not already scheduled, please call the office for a follow-up appointment for next week at . Pending Studies at Discharge: Yes (surgical pathology) Stand-Alone Forms: My [facility], Smoking Cessation Medications and DC Order Prescriptions: New oxycodone-acetaminophen 5-325 mg tablet 1 tab PO Q6H PRN (Reason: pain) Qty: 12 0RF Continued gabapentin 300 mg capsule 200 mg PO BID Euflexxa 10 mg/mL(mw 2.4 -3.6 million) syringe See Rx Instructions .ROUTE .COMPLEX Patient Comments: injected per ortho Rx Instructions: injection per ortho metformin 500 mg tablet 500 mg PO BID atorvastatin 10 mg tablet 10 mg PO DAILY lisinopril 20 mg tablet 20 mg PO DAILY allopurinol 100 mg tablet 100 mg PO DAILY omeprazole 40 mg capsule,delayed release(DR/EC) 40 mg PO DAILY levothyroxine 50 mcg tablet 75 mcg PO DAILY insulin aspart U-100 100 unit/mL (3 mL) insulin pen See Rx Instructions .ROUTE .COMPLEX Patient Comments: per pt's daughter in law: 14 breakfast, 20 lunch, 22 dinner Rx Instructions: 14 breakfast, 20 lunch, 22 dinner insulin glargine [Lantus Solostar U-100 Insulin] 100 unit/mL (3 mL) insulin pen 20 unit SUBCUT HS furosemide 20 mg tablet 20 mg PO BID aripiprazole 2 mg tablet 2 mg PO QAM famotidine 20 mg tablet 20 mg PO HS albuterol sulfate 90 mcg/actuation HFA aerosol inhaler 2 puff INHALATION Q4 PRN (Reason: Wheezing) cholecalciferol (vitamin D3) 50 mcg (2,000 unit) Capsule 50 mcg PO DAILY Discharge Orders: Discharge Order (Routine); Ordered 04/28/25 Ordered By: Chelsey Andrews/Other Patient Handouts: Closed Suction Drainage Tube, Post Op Drain Emptying Steps Admission Data Admit Date/Time: 04/27/25 13:17 Attending Provider: Nic Sterling Admit Provider: Nic Sterling Primary Care Provider: Jo Sainz Other Providers: Migeulina Rizvi; Karo Ramesh I.; Emi Feldman; Rufino Bertrand; Ena Keenan; Jo Rueda; Gillian Parikh; Barrett Urbano; Mert Pedersen; Chaim Torres; Michael Neff; Leilani Taylor; Bart Novoa; Chikis Perdomo; Shirley Orosco; Yesenia Whitaker; Phillip Capone; Kirstin Downs I.; Gt Nesbitt; Marcelino Reynoso; Deni Caba; Candelario Hatch; Francisco Torres; Harshal Kaminski; Kandi Adan; Mahsa Barr; Jayson Paulson; Diego Avalos; Dea Bueno; Gt Escobar; Janessa Aguero; Frandy Grey; Kasandra Mak; Basia Chavis; Basia Sanderson; Simba Barkley; Romario Ro Other Interventions: Discharge Summary Assessment (RN) Last Done: 04/28/25 11:33
[2025-04-28] MEDS ORDERED: LANTUS PER UNIT CHARGE SC SCH (21:00)
== END 2025-04-28 13:35 | disposition home or self-care (01) ==
LOC: ASU 06:53 → 3W 06:53

== ENCOUNTER 2025-09-23 15:37 | Inpatient (IN) ==
--- NOTE | 2025-09-23 15:53 | Emergency Department Note ---
ED Provider Note History of Present Illness Chief Complaint: Altered Mental Status Stated Complaint: AMS Time Seen by Provider: 09/23/25 15:37 Source: patient Mode of arrival: ambulatory Limitations: no limitations Patient is a 75-year-old female who presents to the emergency department via EMS with complaints of generalized fatigue, and feeling "off". Patient's family reports that she took a nap at approximately 1:30 PM to 2 PM and woke confused and "not herself". Patient is alert and oriented x 4 upon presentation to the emergency department. Patient's family reports that they were concerned that she was hypoglycemic and they gave her a bunch of orange juice and sugar to bring her blood sugar up, however a formal blood sugar was never checked. Patient's blood sugar upon presentation to the emergency department was 175. Patient does have a history of diabetes. Patient notes generalized bodyaches, some congestion, bilateral eye pain, and no other symptoms at this time. Home Medications Medication Instructions Recorded Confirmed Type allopurinol 100 mg tablet 100 mg PO DAILY 04/18/23 08/09/25 History atorvastatin 10 mg tablet 10 mg PO DAILY 04/18/23 08/09/25 History insulin aspart U-100 100 unit/mL See Rx Instructions .Route .COMPLEX 04/18/23 08/09/25 History (3 mL) subcutaneous pen insulin glargine 100 unit/mL (3 20 unit subcut HS 04/18/23 08/09/25 History mL) subcutaneous pen (Lantus Solostar U-100 Insulin) levothyroxine 50 mcg tablet 75 mcg PO DAILY 04/18/23 08/09/25 History lisinopril 20 mg tablet 20 mg PO DAILY 04/18/23 08/09/25 History omeprazole 40 mg capsule,delayed 40 mg PO DAILY 04/18/23 08/09/25 History release furosemide 20 mg tablet 20 mg PO BID 01/05/25 08/09/25 History metformin 500 mg tablet 500 mg PO BID 01/05/25 08/09/25 History sodium hyaluronate (viscosup) 10 See Rx Instructions .Route .COMPLEX 01/05/25 08/09/25 History mg/mL(mw 2.4-3.6 million)intra-articular syringe (Euflexxa) albuterol sulfate 90 mcg/actuation 2 puff inhalation Q4 PRN Wheezing 04/27/25 08/09/25 History aerosol inhaler cholecalciferol (vitamin D3) 50 50 mcg PO DAILY 04/27/25 08/09/25 History mcg (2,000 unit) capsule oxycodone-acetaminophen 5 mg-325 1 tab PO Q6H PRN pain #12 tabs 04/28/25 08/09/25 Rx mg tablet aripiprazole 2 mg tablet 4 mg PO QAM 05/05/25 08/09/25 History famotidine 20 mg tablet 40 mg PO HS 05/05/25 08/09/25 History gabapentin 300 mg capsule 300 mg PO TID #270 caps 08/09/25 08/09/25 Rx Allergies Allergy/AdvReac Type Severity Reaction Status Date / Time No Known Allergies Allergy Verified 08/09/25 08:20 Past Med/Surg History Problem List (Updated 09/23/25 @ 21:20 by JAKI Leger) Weakness (Acute) Chest congestion (Acute) Cough (Acute) Nausea & vomiting (Acute) Influenza A (Acute) OZIEL (acute kidney injury) Influenza A Myofascial pain syndrome of lumbar spine Bilateral sacroiliitis Lumbar radiculopathy S/P mastectomy, bilateral Bilateral breast cancer S/P bilateral mastectomy Anemia Anxiety and depression HTN (hypertension) Hypothyroid GERD (gastroesophageal reflux disease) Breast cancer new dx Type 2 diabetes mellitus IDDM Hyperlipidemia Medical History Severe muscle deconditioning Encounter for pre-operative examination Muscular deconditioning Lumbar radiculopathy Arthritis Hearing loss Peripheral edema Carpal tunnel syndrome of left wrist PMR (polymyalgia rheumatica) DDD (degenerative disc disease), cervical Knee pain Lumbar radicular pain Pedal edema Surgical History History of decompression of ulnar nerve History of colonoscopy History of esophagogastroduodenoscopy (EGD) History of epidural steroid injection into lumbar spine History of carpal tunnel surgery History of cataract surgery H/O breast biopsy Family History Mother Diabetes Father Diabetes Son Hypertension Social History Smoking Status: Unknown if ever smoked Second Hand Exposure: No; Do You Dip or Chew Tobacco: No; Hx Alcohol Use: No Hx Substance Use: No Preferred Language: Mavis Communication Ability: Effective Communication Ability Comment: will need spanish interpreter/translator services and family members will be present to transl Communication Tools: Other Hearing Ability: Normal 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 Beliefs That Will Affect Care: None marital status: / Current Living Situation: Family current occupational status: unemployed Feels Safe at Home: Yes Assistive Devices: None Physical Exam Vital Signs Vital Signs - 24 hr 09/23/25 15:37 09/23/25 16:02 09/23/25 16:03 Temperature 36.4 C L Temperature Source Oral Pulse Rate 85 87 Pulse Rate [Right Finger] Pulse Rate from SpO2 Sensor Pulse Rhythm [Right Finger] Pulse Strength [Right Finger] Respiratory Rate 19 22 Respiratory Effort / Characteristics Non-Labored Spontaneous Respiratory Depth Normal Respiratory Pattern Regular Blood Pressure 135/63 135/63 Blood Pressure [Left Arm] Blood Pressure Mean 87 87 Blood Pressure Mean [Left Arm] Pulse Oximetry 95 Oxygen Delivery Method Room Air Room Air Sepsis Recent Fever Within 48 Hours No Sepsis New/Unexplained Change in Mental Status No Sepsis Action Taken by Nursing No Action Required 09/23/25 16:04 09/23/25 16:36 09/23/25 16:46 Temperature Temperature Source Pulse Rate 78 87 Pulse Rate [Right Finger] Pulse Rate from SpO2 Sensor 77 Pulse Rhythm [Right Finger] Pulse Strength [Right Finger] Respiratory Rate 25 H Respiratory Effort / Characteristics Respiratory Depth Respiratory Pattern Blood Pressure 103/80 Blood Pressure [Left Arm] Blood Pressure Mean 87 Blood Pressure Mean [Left Arm] Pulse Oximetry 96 Oxygen Delivery Method Room Air Sepsis Recent Fever Within 48 Hours Sepsis New/Unexplained Change in Mental Status Sepsis Action Taken by Nursing 09/23/25 17:00 09/23/25 18:00 09/23/25 19:00 Temperature Temperature Source Pulse Rate 81 84 79 Pulse Rate [Right Finger] Pulse Rate from SpO2 Sensor 83 Pulse Rhythm [Right Finger] Pulse Strength [Right Finger] Respiratory Rate 28 H 29 H 26 H Respiratory Effort / Characteristics Respiratory Depth Respiratory Pattern Blood Pressure 165/100 H 154/71 H Blood Pressure [Left Arm] Blood Pressure Mean 121 98 Blood Pressure Mean [Left Arm] Pulse Oximetry 94 95 Oxygen Delivery Method Room Air Room Air Sepsis Recent Fever Within 48 Hours Sepsis New/Unexplained Change in Mental Status Sepsis Action Taken by Nursing 09/23/25 20:29 09/23/25 20:39 Temperature Temperature Source Pulse Rate 83 Pulse Rate [Right Finger] 96 H Pulse Rate from SpO2 Sensor Pulse Rhythm [Right Finger] Regular Pulse Strength [Right Finger] Normal Respiratory Rate 19 Respiratory Effort / Characteristics Respiratory Depth Normal Respiratory Pattern Blood Pressure Blood Pressure [Left Arm] 116/68 Blood Pressure Mean Blood Pressure Mean [Left Arm] 84 Pulse Oximetry 95 Oxygen Delivery Method Sepsis Recent Fever Within 48 Hours Sepsis New/Unexplained Change in Mental Status Sepsis Action Taken by Nursing VITAL SIGNS - Vital signs and nursing notes were reviewed. GENERAL -75-year-old female appearing their stated age, who is in no acute distress. Patient presents to the emergency department via EMS. Communicates well with provider and answers questions appropriately. Patient's grandson is at bedside. HEAD - Normocephalic, Atraumatic. No Garcia's Sign or Raccoon's Eyes. EYES - PERRL with EOMI bilaterally. Sclera anicteric. Conjunctiva pink and moist with no injection noted. EARS - No deformities of external structures noted on gross examination bilaterally. NOSE - Midline and without cyanosis. No epistaxis or purulent drainage noted. NECK - Neck with FROM. Supple to palpation. No lymphadenopathy noted. LUNGS - Chest wall symmetric without accessory muscle use, intercostals retractions, or central cyanosis. Normal vesicular breath sounds CTA B/L. No wheezes, rales, or rhonchi appreciated. CARDIAC - RRR with S1/S2. No murmur, rubs, or gallops appreciated. EXTREMITIES - No edema present. +5/5 strength noted in UE/LE bilaterally. NEUROLOGIC -Sensory intact to light touch throughout. PSYCH - A&Ox3 and cooperates fully with examiner. Pt is very pleasant and interacts well with examiner Course Administered Medications Discontinued Medications Sodium Chloride (Nss) 500 mls @ 999 mls/hr IV .Q31M STA Stop: 09/23/25 16:15 Last Infusion: 09/23/25 17:07 Dose: Infused Documented By: Admin: 09/23/25 16:32 Dose: 999 mls/hr Documented By: Promethazine HCl (Phenergan) 12.5 mg in 50.5 mls @ 202 mls/hr IV NOW STA Stop: 09/23/25 18:07 Last Infusion: 09/23/25 18:16 Dose: Infused Documented By: Admin: 09/23/25 18:01 Dose: 202 mls/hr Documented By: CLAY Ioversol (Optiray 320 100ml) 93 ml IV ONCE ONE Stop: 09/23/25 20:01 Last Admin: 09/23/25 20:00 Dose: 93 ml Documented By: MALCOLM Lorazepam (Lorazepam 1 Mg/1 Ml Syr Ed Inj Use) 0.5 mg IV ONE STA Stop: 09/23/25 17:07 Last Admin: 09/23/25 17:56 Dose: 0.5 mg Documented By: CLAY Ondansetron HCl (Ondansetron Inj 2 Mg/Ml 2 Ml Vial) Confirm Administered Dose 4 mg .ROUTE .STK-MED ONE Stop: 09/23/25 16:43 Last Admin: 09/23/25 16:45 Dose: 4 mg Documented By: CLAY Ondansetron HCl (Ondansetron Inj 2 Mg/Ml 2 Ml Vial) 4 mg IV NOW STA Stop: 09/23/25 16:54 Last Admin: 09/23/25 16:57 Dose: Not Given Documented By: CLAY Medical Decision Making Differential Diagnosis COVID, flu, RSV, adenovirus, pneumonia, shoulder fracture, shoulder dislocation, anxiety, cardiac arrhythmia, electrolyte imbalance, among others Medical Records Attestation: I reviewed the patient's medical records. Home Medications was personally reviewed by me Laboratory Data Attestation: I reviewed the patient's lab results. 09/23/25 16:00 09/23/25 16:00 Lab Results 09/23/25 09/23/25 09/23/25 Range/Units 16:00 16:07 20:53 WBC 6.85 (4.8-10.8) K/ul RBC 4.05 L (4.20-5.40) M/uL Hgb 10.4 L (12.0-16.0) g/dL Hct 33.7 L (37.0-47.0) % MCV 83.2 (80.0-100.0) fL MCH 25.7 (25.0-34.0) pg MCHC 30.9 L (32.0-36.0) g/dL RDW Std Deviation 45.9 (36.4-46.3) fL RDW Coeff of Jude 15.2 H (11.5-14.5) % Plt Count 293 (130-400) K/uL MPV 9.1 L (9.4-12.4) fL Immature Gran % (Auto) 0.1 % Neut % (Auto) 56.5 % Lymph % (Auto) 33.6 % [place] % (Auto) 8.8 % Eos % (Auto) 0.9 % Baso % (Auto) 0.1 % Neut # (Auto) 3.87 (1.40-6.50) K/uL Lymph # (Auto) 2.30 (1.20-3.40) K/uL [place] # (Auto) 0.60 H (0.11-0.59) K/uL Eos # (Auto) 0.06 (0.00-0.50) K/uL Baso # (Auto) 0.01 (0.00-0.20) K/uL Immature Gran # (Auto) 0.01 (0.01-0.20) K/uL Sodium 135 L (136-145) mmol/L Potassium 4.3 (3.5-5.1) mmol/L Chloride 102 (98-107) mmol/L Carbon Dioxide 24 (21-32) mmol/L Anion Gap 9 (3-11) BUN 25 H (6-23) mg/dl Creatinine 1.24 H (0.6-1.2) mg/dl Est Cr Clr Drug Dosing 37.2 ml/min eGFR 45.38 BUN/Creatinine Ratio 20.2 H (10-20) Glucose 175 H (70-99(Fasting)) mg/dl POC Glucose 213 H (70-99) mg/dl Calcium 8.9 (8.6-10.3) mg/dl Total Bilirubin 0.2 (0.2-1.0) mg/dl AST 33 (13-39) U/L ALT 30 (7-52) U/L Alkaline Phosphatase 75 (34-104) U/L Troponin I High Sens 6.5 (0-14) pg/ml Total Protein 7.4 (6.0-8.3) gm/dl Albumin 3.5 (3.4-5.0) gm/dl Globulin 3.9 (2.5-4.0) gm/dl Albumin/Globulin Ratio 0.9 (0.9-2) Adenovirus (PCR) Not Detected (NotDetected) B. pertussis DNA (PCR) Not Detected (NotDetected) B.parapertussis DNA PCR Not Detected (NotDetected) C. pneumoniae DNA (PCR) Not Detected (NotDetected) Coronavirus OC43 (PCR) Not Detected (NotDetected) Coronavirus HKU1 (PCR) Not Detected (NotDetected) Coronavirus 229E (PCR) Not Detected (NotDetected) SARS-CoV-2 (PCR) Not Detected (NotDetected) Coronavirus NL63 (PCR) Not Detected (NotDetected) Human Metapneumovir PCR Not Detected (NotDetected) Influenza A (H3) PCR DETECTED A (NotDetected) Influenza Type B (PCR) Not Detected (NotDetected) M. pneumoniae (PCR) Not Detected (NotDetected) Parainfluenza 1 (PCR) Not Detected (NotDetected) Parainfluenza 2 (PCR) Not Detected (NotDetected) Parainfluenza 3 (PCR) Not Detected (NotDetected) Parainfluenza 4 (PCR) Not Detected (NotDetected) RSV (PCR) Not Detected (NotDetected) Entero/Rhino (PCR) Not Detected (NotDetected) Imaging Data Radiologist's Impression: Chest X-Ray 09/23/25 15:45 EXAM: Radiograph of the Chest 1 View INDICATION: Dyspnea and left shoulder pain. TECHNIQUE: Frontal view of the chest. COMPARISON: No relevant prior studies available. FINDINGS: Lungs and pleural spaces: No consolidation or pulmonary edema. No pleural effusion or pneumothorax. Heart: Shape and configuration within normal limits allowing for technique. Mediastinum: Normal contour. Bones/joints: Degenerative changes noted throughout the spine. No acute osseous abnormality seen. Soft tissues: No abnormality noted. No radiopaque foreign body noted. Vasculature: Mildly ectatic aorta with moderate arch calcification noted. Upper abdomen: No abnormality noted. IMPRESSION: No acute cardiopulmonary disease. ACT 112: N/A Electronically signed by Anisa Gatica 09-23-2025 6:07 PM Shoulder X-Ray 09/23/25 15:45 EXAM: Radiographs of the Left Shoulder Complete 3 Views INDICATION: Pain TECHNIQUE: AP, rotated and scapular Y views obtained COMPARISON: No relevant prior studies available. FINDINGS: Bones/joints: No fracture, erosion or dislocation. Soft tissues: No abnormality noted. No radiopaque foreign body noted. IMPRESSION: No abnormality noted. ACT 112: N/A Electronically signed by Anisa Gatica 09-23-2025 6:[address] 09/23/25 16:00 EXAM: CT Head Without Intravenous Contrast INDICATION: Periods of altered mental status. TECHNIQUE: Axial computed tomography images of the head/brain without intravenous contrast. Sagittal and/or coronal reformats are provided. Sagittal and coronal reformatted images were created and reviewed. This CT exam was performed using one or more of the following dose reduction techniques: automated exposure control, adjustment of the mA and/or kV according to patient size, and/or use of iterative reconstruction technique. COMPARISON: No relevant prior studies available. FINDINGS: Limitations: None. Brain and extra-axial spaces: There is age appropriate cortical atrophy and chronic ischemic periventricular white matter hypodensity. No acute infarct, hemorrhage or mass noted. Bones/joints: No acute changes. Soft tissues: No acute abnormality noted. Vasculature: Intracranial atherosclerotic calcification noted. Sinuses: Trace chronic maxillary sinus thickening. Mastoid air cells: No mastoid effusion. Orbits: No acute abnormality noted. IMPRESSION: Cerebral atrophy. No acute changes. ACT 112: N/A Electronically signed by Anisa Gatica 09-23-2025 6:52 PM MDM Narrative Patient is a 75-year-old female who presents to the emergency department via EMS with complaints of generalized fatigue, and feeling "off". Patient's family reports that she took a nap at approximately 1:30 PM to 2 PM and woke confused and "not herself". Patient is alert and oriented x 4 upon presentation to the emergency department. Patient's family reports that they were concerned that she was hypoglycemic and they gave her a bunch of orange juice and sugar to bring her blood sugar up, however a formal blood sugar was never checked. Patient's blood sugar upon presentation to the emergency department was 175. Patient does have a history of diabetes. Patient notes generalized bodyaches, some congestion, bilateral eye pain, and no other symptoms at this time. Patient was evaluated by myself and findings were noted in the physical exam above. Patient was ordered IV placement, lab work, urinalysis, [employer] respiratory panel, chest x-ray, EKG, IV saline, x-ray of the shoulder and CT of the brain. Patient was also ordered a dose of Zofran for her reported nausea. Patient also notes some bilateral eye discomfort. Patient's lab work resulted with a normal white blood cell count of 6.85. Patient had some mild anemia with a hemoglobin of 10.4 and hematocrit of 33.7. Those numbers appear to be within the patient's normal baseline values. Patient had no significant electrolyte imbalance noted. Patient had a mildly elevated creatinine at 1.24. Patient also had a [employer] upper respiratory panel that resulted positive for influenza A. Patient's initial troponin was 6.5. Patient had a chest x-ray that was completed and interpreted by radiology to show no acute cardiopulmonary disease. Patient also had a left shoulder x-ray that was completed and interpreted by radiology to show no evidence of fracture, dislocation or erosion patient had a subsequent episode of vomiting while she was here in the emergency department and was ordered a dose of Phenergan. I discussed with the patient and her family at bedside that it would be advisable for her to stay in the hospital for further evaluation and management since she is experiencing significant weakness and intractable vomiting. Patient was also ordered a CT of the abdomen pelvis at this time. Patient and her family at bedside verbalized understanding and is agreeable to this plan. I spoke with Dr. Bertrand of the [facility] hospitalist group and gave him a full report of the patient's chief complaint, current status and the results of her imaging and lab work. He verbalized understanding and was agreeable to accept the patient under his service for further evaluation and management. Please refer to the [facility] hospitalist group's documentation for further evaluation management. Impression Influenza A, Nausea & vomiting, Cough, Chest congestion, Weakness Discharge Plan Visit Data Chief Complaint: Altered Mental Status Stated Complaint: AMS ED Provider: Edwin Aguilar ED Midlevel Provider: Sade Wise Discharge Problem: Influenza A, Nausea & vomiting, Cough, Chest congestion, Weakness Patient Disposition: Admitted As Inpatient Condition: Fair Forms Stand Alone Forms: My [facility] [employer] Prescriptions Prescriptions: No Action gabapentin 300 mg capsule 300 mg PO TID Qty: 270 3RF Euflexxa 10 mg/mL(mw 2.4 -3.6 million) syringe See Rx Instructions .ROUTE .COMPLEX Patient Comments: injected per ortho Rx Instructions: injection per ortho metformin 500 mg tablet 500 mg PO BID atorvastatin 10 mg tablet 10 mg PO DAILY lisinopril 20 mg tablet 20 mg PO DAILY allopurinol 100 mg tablet 100 mg PO DAILY omeprazole 40 mg capsule,delayed release(DR/EC) 40 mg PO DAILY levothyroxine 50 mcg tablet 75 mcg PO DAILY insulin aspart U-100 100 unit/mL (3 mL) insulin pen See Rx Instructions .ROUTE .COMPLEX Patient Comments: per pt's daughter in law: 14 breakfast, 20 lunch, 22 dinner Rx Instructions: 14 breakfast, 20 lunch, 22 dinner insulin glargine [Lantus Solostar U-100 Insulin] 100 unit/mL (3 mL) insulin pen 20 unit SUBCUT HS furosemide 20 mg tablet 20 mg PO BID albuterol sulfate 90 mcg/actuation HFA aerosol inhaler 2 puff INHALATION Q4 PRN (Reason: Wheezing) cholecalciferol (vitamin D3) 50 mcg (2,000 unit) Capsule 50 mcg PO DAILY oxycodone-acetaminophen 5-325 mg tablet 1 tab PO Q6H PRN (Reason: pain) Qty: 12 0RF famotidine 20 mg tablet 40 mg PO HS aripiprazole 2 mg tablet 4 mg PO QAM Referrals Referrals: Jo Sainz DO [Primary Care Provider] - ED DC CONDITION Conditon at Discharge Condition at Discharge: Fair Discharge Problem: Nausea & vomiting Qualifiers: Vomiting type: unspecified Qualified Code(s): R11.2 - Nausea with vomiting, unspecified Cough Qualifiers: Cough type: acute Qualified Code(s): R05.1 - Acute cough
[2025-09-23 16:13] LABS: Hematocrit (blood only) 33.7 % (37.0-47.0); Hemoglobin 10.4 g/dL (12.0-16.0); Immature Granulocytes # (auto) 0.01 K/uL (0.01-0.20); Immature Granulocytes % (auto) 0.1 %; Mean Corpuscular Hemoglobin 25.7 pg (25.0-34.0); Mean Corpuscular Volume 83.2 fL (80.0-100.0); Platelet Count 293 K/uL (130-400); RDW Standard Deviation 45.9 fL (36.4-46.3); Red Blood Count 4.05 M/uL (4.20-5.40); White Blood Count 6.85 K/ul (4.8-10.8)
[2025-09-23 16:32] LABS: Alanine Aminotransferase 30.0 U/L (7-52); Albumin Globulin Ratio 0.9 (0.9-2); Albumin Level 3.5 gm/dl (3.4-5.0); Alkaline Phosphatase 75.0 U/L (34-104); Anion Gap 9.0 (3-11); Bilirubin,Total 0.2 mg/dl (0.2-1.0); Blood Urea Nitrogen 25.0 mg/dl (6-23); Calcium 8.9 mg/dl (8.6-10.3); Carbon Dioxide 24.0 mmol/L (21-32); Chloride 102.0 mmol/L (98-107); Creatinine Clr Calc Pharmacy 37.2 ml/min; Globulin 3.9 gm/dl (2.5-4.0); Glucose 175.0 mg/dl (70-99(Fasting)); Potassium 4.3 mmol/L (3.5-5.1); Sodium 135.0 mmol/L (136-145); Total Protein 7.4 gm/dl (6.0-8.3)
[2025-09-23] MEDS: SODIUM CHLORIDE 0.9% 500 ML IV STA (16:32)
[2025-09-23] MEDS: ONDANSETRON INJ 2 MG/ML 2 ML VIAL ONE (16:45)
[2025-09-23] MEDS: ONDANSETRON INJ 2 MG/ML 2 ML VIAL IV STA (16:57)
[2025-09-23 17:10] LABS: Chlamydia pneumoniae PCR Not Detected (NotDetected); Coronavirus 229E PCR Not Detected (NotDetected); Coronavirus CoV-2 (COVID19)PCR Not Detected (NotDetected); Coronavirus HKU1 PCR Not Detected (NotDetected); Coronavirus NL63 PCR Not Detected (NotDetected); Coronavirus OC43PCR Not Detected (NotDetected); Human Metapneumovirus PCR Not Detected (NotDetected); Influenza A (H3) PCR DETECTED (NotDetected); Parainfluenza Virus 1 PCR Not Detected (NotDetected); Parainfluenza Virus 2 PCR Not Detected (NotDetected); Parainfluenza Virus 3 PCR Not Detected (NotDetected); Parainfluenza Virus 4 PCR Not Detected (NotDetected); Respiratory Syncytial VirusPCR Not Detected (NotDetected); Rhinovirus/Enterovirus PCR Not Detected (NotDetected)
[2025-09-23] MEDS: LORazepam 1 MG/1 ML SYR ED Inj Use IV STA (17:56)
[2025-09-23] MEDS: PROMETHAZINE 12.5 MG/50.5 ML BAG IV STA (18:01)
--- NOTE | 2025-09-23 18:01 | Emergency Department Note ---
ED Visit Note I was consulted by the Advanced Practice Provider JAKI Odom. I performed a substantive portion of the visit including all aspects of medical decision making. Patient presenting with flulike illness. Patient positive for flu A. Patient admitted to the medicine service. .
--- NOTE | 2025-09-23 18:07 | XRay Report ---
EXAM: Radiograph of the Chest 1 View INDICATION: Dyspnea and left shoulder pain. TECHNIQUE: Frontal view of the chest. COMPARISON: No relevant prior studies available. FINDINGS: Lungs and pleural spaces: No consolidation or pulmonary edema. No pleural effusion or pneumothorax. Heart: Shape and configuration within normal limits allowing for technique. Mediastinum: Normal contour. Bones/joints: Degenerative changes noted throughout the spine. No acute osseous abnormality seen. Soft tissues: No abnormality noted. No radiopaque foreign body noted. Vasculature: Mildly ectatic aorta with moderate arch calcification noted. Upper abdomen: No abnormality noted. IMPRESSION: No acute cardiopulmonary disease. ACT 112: N/A Electronically signed by Anisa Gatica 09-23-2025 6:07 PM
--- NOTE | 2025-09-23 18:07 | XRay Report ---
EXAM: Radiographs of the Left Shoulder Complete 3 Views INDICATION: Pain TECHNIQUE: AP, rotated and scapular Y views obtained COMPARISON: No relevant prior studies available. FINDINGS: Bones/joints: No fracture, erosion or dislocation. Soft tissues: No abnormality noted. No radiopaque foreign body noted. IMPRESSION: No abnormality noted. ACT 112: N/A Electronically signed by Anisa Gatica 09-23-2025 6:07 PM
--- NOTE | 2025-09-23 18:52 | CT Scan Report ---
EXAM: CT Head Without Intravenous Contrast INDICATION: Periods of altered mental status. TECHNIQUE: Axial computed tomography images of the head/brain without intravenous contrast. Sagittal and/or coronal reformats are provided. Sagittal and coronal reformatted images were created and reviewed. This CT exam was performed using one or more of the following dose reduction techniques: automated exposure control, adjustment of the mA and/or kV according to patient size, and/or use of iterative reconstruction technique. COMPARISON: No relevant prior studies available. FINDINGS: Limitations: None. Brain and extra-axial spaces: There is age appropriate cortical atrophy and chronic ischemic periventricular white matter hypodensity. No acute infarct, hemorrhage or mass noted. Bones/joints: No acute changes. Soft tissues: No acute abnormality noted. Vasculature: Intracranial atherosclerotic calcification noted. Sinuses: Trace chronic maxillary sinus thickening. Mastoid air cells: No mastoid effusion. Orbits: No acute abnormality noted. IMPRESSION: Cerebral atrophy. No acute changes. ACT 112: N/A Electronically signed by Anisa Gatica 09-23-2025 6:52 PM
[2025-09-23] MEDS: OPTIRAY 320 100ml IV ONE (20:00)
[2025-09-23] MEDS ORDERED: ONDANSETRON INJ 2 MG/ML 2 ML VIAL IV PRN (20:52)
--- NOTE | 2025-09-23 20:52 | History & Physical Report ---
Date of Service September 23, 2025 Assessment & Plan (1) Influenza A: Plan: Cough with wheezing and shortness of breath, generalized bodyaches , since this morning [employer] is positive for influenza A Started on Tamiflu Symptomatic medications for cough, wheezing and nausea vomiting (2) OZIEL (acute kidney injury): Plan: Likely secondary to dehydration Will give cautious amount of intravenous fluid and was advised to drink more fluid Will hold MATEO inhibitor Check PRP tomorrow morning (3) HTN (hypertension): Plan: Blood pressure remains stable (4) Type 2 diabetes mellitus: Plan: Will continue current insulin doses and put her on sliding scale insulin coverage as well (5) Hyperlipidemia: Plan: continue statin (6) Hypothyroid: Plan: Continue thyroid replacement (7) GERD (gastroesophageal reflux disease): Plan: Continue PPI Complains of abdominal pain and nausea vomiting Awaiting CT report (8) Anxiety and depression: (9) Myofascial pain syndrome of lumbar spine: Plan: Complaining generalized aches and pains Complicated by influenza A (10) S/P mastectomy, bilateral: Plan DVT prophylaxissubcu heparin CODE STATUSfull code Discussed with the family members History of Present Illness Chief Complaint: Change in mental status,cough and generalized body ache since this morning Primary Care Provider: Jo Sainz DO She is a 75-year-old female with significant past medical history of type 2 diabetes on insulin, hyperlipidemia, hypothyroidism, hypertension, diastolic dysfunction, obesity, GERD, chronic kidney disease stage III AA, PMR, osteoarthritis, chronic anemia, depression and also history of infiltrating ductal carcinoma of the breast who is status post bilateral mastectomy and bilateral sentinel node biopsy by Dr. Denys Sterling on 04/27/2025 apparently has been complaining of weakness, tiredness, aches and pain involving all of the body and the abdomen, cough with shortness of breath and change in mental status that happened since this morning. She was noted to have wheezing with rhonchi on chest examination and dehydration and [employer] noted to be positive for flu. denies any fever and/or chills and denies any problem with urine or bowel of it but has been complaining of nausea and vomiting. since this morning Allergies Allergy/AdvReac Type Severity Reaction Status Date / Time No Known Allergies Allergy Verified 08/09/25 08:20 Home Medications Medication Instructions Recorded Confirmed Type allopurinol 100 mg tablet 100 mg PO DAILY 04/18/23 08/09/25 History atorvastatin 10 mg tablet 10 mg PO DAILY 04/18/23 08/09/25 History insulin aspart U-100 100 unit/mL See Rx Instructions .Route .COMPLEX 04/18/23 08/09/25 History (3 mL) subcutaneous pen insulin glargine 100 unit/mL (3 20 unit subcut HS 04/18/23 08/09/25 History mL) subcutaneous pen (Lantus Solostar U-100 Insulin) levothyroxine 50 mcg tablet 75 mcg PO DAILY 04/18/23 08/09/25 History lisinopril 20 mg tablet 20 mg PO DAILY 04/18/23 08/09/25 History omeprazole 40 mg capsule,delayed 40 mg PO DAILY 04/18/23 08/09/25 History release furosemide 20 mg tablet 20 mg PO BID 01/05/25 08/09/25 History metformin 500 mg tablet 500 mg PO BID 01/05/25 08/09/25 History sodium hyaluronate (viscosup) 10 See Rx Instructions .Route .COMPLEX 01/05/25 08/09/25 History mg/mL(mw 2.4-3.6 million)intra-articular syringe (Euflexxa) albuterol sulfate 90 mcg/actuation 2 puff inhalation Q4 PRN Wheezing 04/27/25 08/09/25 History aerosol inhaler cholecalciferol (vitamin D3) 50 50 mcg PO DAILY 04/27/25 08/09/25 History mcg (2,000 unit) capsule oxycodone-acetaminophen 5 mg-325 1 tab PO Q6H PRN pain #12 tabs 04/28/25 08/09/25 Rx mg tablet aripiprazole 2 mg tablet 4 mg PO QAM 05/05/25 08/09/25 History famotidine 20 mg tablet 40 mg PO HS 05/05/25 08/09/25 History gabapentin 300 mg capsule 300 mg PO TID #270 caps 08/09/25 08/09/25 Rx Past Med/Surg History Problem List (Updated 09/23/25 @ 20:49 by Rufino Bertrand MD) OZIEL (acute kidney injury) Influenza A Myofascial pain syndrome of lumbar spine Bilateral sacroiliitis Lumbar radiculopathy S/P mastectomy, bilateral Bilateral breast cancer S/P bilateral mastectomy Anemia Anxiety and depression HTN (hypertension) Hypothyroid GERD (gastroesophageal reflux disease) Breast cancer new dx Type 2 diabetes mellitus IDDM Hyperlipidemia Medical History Severe muscle deconditioning Encounter for pre-operative examination Muscular deconditioning Lumbar radiculopathy Arthritis Hearing loss Peripheral edema Carpal tunnel syndrome of left wrist PMR (polymyalgia rheumatica) DDD (degenerative disc disease), cervical Knee pain Lumbar radicular pain Pedal edema Surgical History History of decompression of ulnar nerve History of colonoscopy History of esophagogastroduodenoscopy (EGD) History of epidural steroid injection into lumbar spine History of carpal tunnel surgery History of cataract surgery H/O breast biopsy Family History Mother Diabetes Father Diabetes Son Hypertension Social History Smoking Status: Unknown if ever smoked Second Hand Exposure: No; Do You Dip or Chew Tobacco: No; Hx Alcohol Use: No Hx Substance Use: No Preferred Language: Mavis Communication Ability: Effective Communication Ability Comment: will need banbury operator services and family members will be present to transl Communication Tools: Other Hearing Ability: Normal Stone Sandblaster Required: Yes Beliefs That Will Affect Care: None marital status: / Current Living Situation: Family current occupational status: unemployed Feels Safe at Home: Yes Assistive Devices: None Review of Systems Review of Systems: all systems reviewed and are unremarkable except as noted below Physical Exam Physical Exam: lying in bed with acute distress due to wheezing cough and Constitutional: well developed, well nourished, + ill appearing and + obese Eyes: PERRL, conjunctivae normal, anicteric sclerae ENMT: external ear and nose normal, oropharynx normal Neck: trachea midline, no thyromegaly Respiratory: + respiratory distress ( minimal distres s) Auscultation: + diminished lung sounds, + crackles ( minimal bibasilar crackles) and + wheezes ( anterior wheezing) Cardiovascular: Rate/Rhythm: regular rate and regular rhythm; not tachycardic Heart Sounds: normal S1 and normal S2; no murmur Extremities: + edema ( trace edema bilaterally) Gastrointestinal (Abdomen): Inspection/Auscultation: + abdomen distended ( mildly tender all over no guarding and no rigidity) and normal bowel sounds Percussion/Palpation: + abdomen tender ( mildly tender all over) and abdomen soft Musculoskeletal: no acute arthritis involving any of the joint Neurologic: normal touch/pain/proprioception and moves all extremities; no focal motor deficits Lymphatic: no cervical or axillary lymphadenopathy Results & Data Results & Data Vital Signs (Past 12 Hours) Vital Signs Temp Pulse Pulse Resp BP BP Pulse Ox 09/23/25 20:39 96 H 19 116/68 95 09/23/25 20:29 83 09/23/25 19:00 79 26 H 09/23/25 18:00 84 29 H 154/71 H 95 09/23/25 17:00 81 28 H 165/100 H 94 09/23/25 16:46 87 09/23/25 16:36 78 25 H 103/80 96 09/23/25 16:04 09/23/25 16:03 87 22 135/63 09/23/25 16:02 09/23/25 15:37 36.4 C L 85 19 135/63 95 O2 Del Method 09/23/25 20:39 09/23/25 20:29 09/23/25 19:00 09/23/25 18:00 Room Air 09/23/25 17:00 Room Air 09/23/25 16:46 09/23/25 16:36 09/23/25 16:04 Room Air 09/23/25 16:03 09/23/25 16:02 Room Air 09/23/25 15:37 Room Air Laboratory Results Short CBC 09/23/25 Range/Units 16:00 WBC 6.85 (4.8-10.8) K/ul Hgb 10.4 L (12.0-16.0) g/dL Hct 33.7 L (37.0-47.0) % Plt Count 293 (130-400) K/uL BMP 09/23/25 16:00 Sodium 135 L Potassium 4.3 Chloride 102 Carbon Dioxide 24 BUN 25 H Creatinine 1.24 H Glucose 175 H Calcium 8.9 Liver Function 09/23/25 Range/Units 16:00 Total Bilirubin 0.2 (0.2-1.0) mg/dl AST 33 (13-39) U/L ALT 30 (7-52) U/L Alkaline Phosphatase 75 (34-104) U/L Albumin 3.5 (3.4-5.0) gm/dl Medications Administered Current Inpatient Medications Heparin Sodium (Porcine) (Heparin Sod 5,000 Unit/0.5 Ml Vial) 5,000 units SQ Q12 RADAMES Stop: 10/23/25 20:59 Hydralazine HCl (Hydralazine Hcl 20 Mg/Ml Vial) 5 mg IV Q6H PRN PRN Reason: Blood Pressure - High Stop: 10/23/25 20:44 Sodium Chloride (Nss) 1,000 mls @ 125 mls/hr IV .Q8H RADAMES Stop: 09/24/25 19:59 Insulin Human Regular (Insulin Human Regular) 0 units SC ACHS RADAMES Stop: 10/23/25 20:59 Oseltamivir Phosphate (Oseltamivir Phosphate 6 Mg/Ml Susp) 30 mg PO BID RADAMES Stop: 09/28/25 20:59 Code Status & VTE Plan VTE Prophylaxis Plan VTE Prophylaxis will be ordered: Yes
[2025-09-23] MEDS ORDERED: OSELTAMIVIR PHOSPHATE 75 MG CAP PO SCH (21:00)
[2025-09-23] MEDS ORDERED: NovoLIN-R INSULIN PER UNIT CHARGE SQ ONE (22:15)
[2025-09-23] MEDS ORDERED: INSULIN HUMAN REGULAR SC SCH (22:15)
[2025-09-23] MEDS ORDERED: ALBUTEROL HFA 8 GM INHALER INH PRN (22:23)
[2025-09-23] MEDS: SODIUM CHLORIDE 0.9% 1,000 ML IV SCH (22:42)
--- NOTE | 2025-09-23 22:52 | CT Scan Report ---
Exam(s): CT ABDOMEN + PELVIS With Contrast IV Amt: 93 ml opti 320 EXAM: CT Abdomen and Pelvis With Intravenous Contrast CLINICAL HISTORY: Reason for exam: intractable vomiting. TECHNIQUE: Axial computed tomography images of the abdomen and pelvis with intravenous contrast. CTDI is 28.14 mGy and DLP is 1387.25 mGy-cm. Automated exposure control was utilized for the study. A dose lowering technique was utilized adhering to the principles of ALARA. CONTRAST: Patient received 93 ml [id number] of IV contrast COMPARISON: 04/27/2025 FINDINGS: Lung bases: See below. Heart: [id number] cardiomegaly and coronary calcification. There is edema and/or atelectasis in both lung bases. ABDOMEN: Liver: The liver is mildly enlarged measuring 18.2 cm craniocaudad. No focal liver mass lesion is seen. Gallbladder and bile ducts: 3 mm calcified gallstone within an otherwise unremarkable appearing gallbladder. No wall thickening or surrounding inflammation is seen. No biliary duct dilation or choledocholithiasis. Pancreas: Unremarkable. No mass. No ductal dilation. Spleen: Unremarkable. No splenomegaly. Adrenals: Unremarkable. No mass. Kidneys and ureters: Unremarkable. No solid mass. No hydronephrosis. Stomach and bowel: Unremarkable. No obstruction. No mucosal thickening. PELVIS: Appendix: The appendix is normal. Bowel loops are nondilated. No acute inflammatory changes are seen involving the bowel. Bladder: The urinary bladder is upper limits of normal measuring 15 cm long axis. Reproductive: Unremarkable as visualized. ABDOMEN and PELVIS: Intraperitoneal space: Smooth oval 3.5 cm cyst or follicle extending off the right ovary. No free fluid in the pelvis. No free air. Bones/joints: [id number] multilevel degenerative changes throughout the spine. No acute fracture or subluxation is seen. Soft tissues: Unremarkable. Vasculature: The abdominal aorta is mildly calcified but nondilated. There is no aneurysm or dissection. Lymph nodes: Unremarkable. No enlarged lymph nodes. IMPRESSION: 1. [id number] cardiomegaly and coronary calcification. There is edema and/or atelectasis in both lung bases. 2. The urinary bladder is upper limits of normal measuring 15 cm long axis. If the patient is unable to void, consider urinary retention. 3. The appendix is normal. Bowel loops are nondilated. No acute inflammatory changes are seen involving the bowel. No acute inflammatory process is seen within the abdomen or pelvis. Electronically signed by: Dung Parikh MD 09/23/25 22:51 PM
[2025-09-23] MEDS: HEPARIN SOD 5,000 UNIT/0.5 ML VIAL SQ SCH (23:21)
[2025-09-23] MEDS: OSELTAMIVIR PHOSPHATE 30 MG CAP PO ONE (23:22)
[2025-09-23] MEDS: INSULIN ASPART PER UNIT CHARGE SC ONE (23:23)
[2025-09-23] MEDS: LANTUS PER UNIT CHARGE SQ SCH (23:24)
[2025-09-23] MEDS: FAMOTIDINE 40 MG TABLET PO SCH (23:25)
[2025-09-24] MEDS: GABAPENTIN 300 MG CAP PO SCH ×2 (00:13→09:28)
[2025-09-24] MEDS ORDERED: Nursing to Pharmacy Communication SCH (00:15)
[2025-09-24 07:06] VITALS: RESP 18
[2025-09-24] MEDS: LEVOTHYROXINE SODIUM 75 MCG TABLET PO SCH (07:15)
[2025-09-24] MEDS ORDERED: INSULIN HUMAN REGULAR SC SCH (07:30)
[2025-09-24 07:47] LABS: Hematocrit (blood only) 29.2 % (37.0-47.0); Hemoglobin 9.1 g/dL (12.0-16.0); Immature Granulocytes # (auto) 0.02 K/uL (0.01-0.20); Immature Granulocytes % (auto) 0.4 %; Mean Corpuscular Hemoglobin 25.9 pg (25.0-34.0); Mean Corpuscular Volume 83.0 fL (80.0-100.0); Platelet Count 266 K/uL (130-400); RDW Standard Deviation 46.2 fL (36.4-46.3); Red Blood Count 3.52 M/uL (4.20-5.40); White Blood Count 5.12 K/ul (4.8-10.8)
[2025-09-24 08:07] LABS: Alanine Aminotransferase 24.0 U/L (7-52); Albumin Globulin Ratio 0.9 (0.9-2); Albumin Level 3.0 gm/dl (3.4-5.0); Alkaline Phosphatase 60.0 U/L (34-104); Anion Gap 5.0 (3-11); Bilirubin,Total 0.3 mg/dl (0.2-1.0); Blood Urea Nitrogen 19.0 mg/dl (6-23); Calcium 8.0 mg/dl (8.6-10.3); Carbon Dioxide 27.0 mmol/L (21-32); Chloride 105.0 mmol/L (98-107); Creatinine Clr Calc Pharmacy 48.0 ml/min; Globulin 3.3 gm/dl (2.5-4.0); Glucose 128.0 mg/dl (70-99(Fasting)); Magnesium 1.5 mg/dl (1.7-2.4); Potassium 4.3 mmol/L (3.5-5.1); Sodium 137.0 mmol/L (136-145); Total Protein 6.3 gm/dl (6.0-8.3)
[2025-09-24] MEDS ORDERED: OSELTAMIVIR PHOSPHATE 30 MG CAP PO SCH (09:00)
[2025-09-24] MEDS: MAGNESIUM SULFATE / D5W 1 GM/100 ML BAG IV SCH (09:12)
[2025-09-24] MEDS: INSULIN ASPART PER UNIT CHARGE SQ SCH ×2 (09:27→12:14)
[2025-09-24] MEDS: ATORVASTATIN 10 MG TAB PO SCH (09:28)
[2025-09-24] MEDS: CHOLECALCIFEROL 25 MCG (1000 UNITS) TAB PO SCH (09:28)
[2025-09-24] MEDS: ALBUTEROL 0.083% NEBU SOLN 3 ML VIAL NEB PRN (09:36)
[2025-09-24] MEDS: ACETAMINOPHEN 500 MG TAB PO PRN (09:44)
[2025-09-24] MEDS ORDERED: ALUMINUM/MAGNESIUM SUSP 30 ML UDC PO PRN (12:06)
[2025-09-24 13:36] LABS: Appearance Urine Clear (Clear); Bacteria Urine Automated 1+ (None Seen); Cast Urine Automated 0-2 /lpf (0-2); Glucose Urine UA Negative (Negative); RBC Urine Automated 0-2 /hpf (0-2)
--- NOTE | 2025-09-24 13:38 | Hospitalist Progress Note ---
Date of Service September 24, 2025 Assessment & Plan (1) Influenza A: Plan: Cough with wheezing and shortness of breath, generalized bodyaches , since this morning [employer] is positive for influenza A Started on Tamiflu Symptomatic medications for cough, wheezing and nausea vomiting Clinically much better and has minimal cough and minimal wheezing She has been saturating normally on room air Will get PT and OT evaluation and possible discharge this afternoon (2) OZIEL (acute kidney injury): Plan: Likely secondary to dehydration Will give cautious amount of intravenous fluid and was advised to drink more fluid Will hold MATEO inhibitor Check PRP tomorrow morning Creatinine has been normalized, IV fluid will be stopped and she was advised to drink more fluid (3) HTN (hypertension): Plan: Blood pressure remains stable Her blood pressure remains controlled (4) Type 2 diabetes mellitus: Plan: Will continue current insulin doses and put her on sliding scale insulin coverage as well (5) Hyperlipidemia: Plan: continue statin (6) Hypothyroid: Plan: Continue thyroid replacement (7) GERD (gastroesophageal reflux disease): Plan: Continue PPI Complains of abdominal pain and nausea vomiting Awaiting CT reportCT of the abdomen pelvis did not show any significant findings Given her abdominal discomfort will add Maalox as needed for dyspepsia (8) Anxiety and depression: Plan: Remains stable (9) Myofascial pain syndrome of lumbar spine: Plan: Complaining generalized aches and pains Complicated by influenza A (10) S/P mastectomy, bilateral: Plan: Has not been taking any medications Complains of anorexia and weight loss was advised to see oncologist as an outpatient Plan DVT prophylaxissubcu heparin CODE STATUSfull code Discussed with the family members Admission and Anticipated Discharge Date Admission Date: September 23, 2025 Subjective 09/24/2025 The patient was seen and examined in medical telemetry unit in presence of the daughter She has been feeling entirely better but complains today of some ear ache and also sore throat Abdomen feels to be bloated but no definite tenderness She has been moving her bowels and she has incontinence of urine Review of Systems Review of Systems: All systems reviewed and unremarkable except as noted below Physical Exam Physical Exam: lying in bed with acute distress due to wheezing cough and Constitutional: well developed, well nourished, + ill appearing and + obese Eyes: PERRL, conjunctivae normal, anicteric sclerae ENMT: external ear and nose normal, oropharynx normal Neck: trachea midline, no thyromegaly Respiratory: + respiratory distress ( minimal distres s) Auscultation: + diminished lung sounds, + crackles ( minimal bibasilar crackles) and + wheezes ( anterior wheezing) Cardiovascular: Rate/Rhythm: regular rate and regular rhythm; not tachycardic Heart Sounds: normal S1 and normal S2; no murmur Extremities: + edema ( trace edema bilaterally) Gastrointestinal (Abdomen): Inspection/Auscultation: + abdomen distended ( mildly tender all over no guarding and no rigidity) and normal bowel sounds Percussion/Palpation: + abdomen tender ( mildly tender all over) and abdomen soft Musculoskeletal: no acute arthritis involving any of the joint Neurologic: normal touch/pain/proprioception and moves all extremities; no focal motor deficits Lymphatic: no cervical or axillary lymphadenopathy Results & Data Results & Data Vital Signs (Past 12 Hours) Vital Signs Temp Pulse Pulse Pulse Resp BP Pulse Ox 09/24/25 11:16 36.8 C 51 L 18 105/67 99 09/24/25 09:59 09/24/25 09:37 74 18 98 09/24/25 08:13 77 09/24/25 07:06 36.8 C 77 18 116/72 95 09/24/25 03:46 37.1 C 91 H 16 103/69 96 O2 Del Method 09/24/25 11:16 Room Air 09/24/25 09:59 Room Air 09/24/25 09:37 Room Air 09/24/25 08:13 09/24/25 07:06 Room Air 09/24/25 03:46 Room Air Laboratory Results Short CBC 09/23/25 09/24/25 Range/Units 16:00 06:58 WBC 6.85 5.12 (4.8-10.8) K/ul Hgb 10.4 L 9.1 L (12.0-16.0) g/dL Hct 33.7 L 29.2 L (37.0-47.0) % Plt Count 293 266 (130-400) K/uL BMP 09/23/25 09/24/25 16:00 06:58 Sodium 135 L 137 Potassium 4.3 4.3 Chloride 102 105 Carbon Dioxide 24 27 BUN 25 H 19 Creatinine 1.24 H 0.96 Glucose 175 H 128 H Calcium 8.9 8.0 L Liver Function 09/23/25 09/24/25 Range/Units 16:00 06:58 Total Bilirubin 0.2 0.3 (0.2-1.0) mg/dl AST 33 26 (13-39) U/L ALT 30 24 (7-52) U/L Alkaline Phosphatase 75 60 (34-104) U/L Albumin 3.5 3.0 L (3.4-5.0) gm/dl Diagnostic Findings Laboratory Results WBC 5.12 K/ul (4.8-10.8) 09/24/25 06:58 RBC 3.52 M/uL (4.20-5.40) L 09/24/25 06:58 Hgb 9.1 g/dL (12.0-16.0) L 09/24/25 06:58 Hct 29.2 % (37.0-47.0) L 09/24/25 06:58 MCV 83.0 fL (80.0-100.0) 09/24/25 06:58 MCH 25.9 pg (25.0-34.0) 09/24/25 06:58 MCHC 31.2 g/dL (32.0-36.0) L 09/24/25 06:58 RDW Std Deviation 46.2 fL (36.4-46.3) 09/24/25 06:58 RDW Coeff of Jude 15.2 % (11.5-14.5) H 09/24/25 06:58 Plt Count 266 K/uL (130-400) 09/24/25 06:58 MPV 9.4 fL (9.4-12.4) 09/24/25 06:58 Immature Gran % (Auto) 0.4 % 09/24/25 06:58 Neut % (Auto) 46.3 % 09/24/25 06:58 Lymph % (Auto) 40.8 % 09/24/25 06:58 [place] % (Auto) 12.1 % 09/24/25 06:58 Eos % (Auto) 0.2 % 09/24/25 06:58 Baso % (Auto) 0.2 % 09/24/25 06:58 Neut # (Auto) 2.37 K/uL (1.40-6.50) 09/24/25 06:58 Lymph # (Auto) 2.09 K/uL (1.20-3.40) 09/24/25 06:58 [place] # (Auto) 0.62 K/uL (0.11-0.59) H 09/24/25 06:58 Eos # (Auto) 0.01 K/uL (0.00-0.50) 09/24/25 06:58 Baso # (Auto) 0.01 K/uL (0.00-0.20) 09/24/25 06:58 Immature Gran # (Auto) 0.02 K/uL (0.01-0.20) 09/24/25 06:58 Sodium 137 mmol/L (136-145) 09/24/25 06:58 Potassium 4.3 mmol/L (3.5-5.1) 09/24/25 06:58 Chloride 105 mmol/L (98-107) 09/24/25 06:58 Carbon Dioxide 27 mmol/L (21-32) 09/24/25 06:58 Anion Gap 5 (3-11) 09/24/25 06:58 BUN 19 mg/dl (6-23) 09/24/25 06:58 Creatinine 0.96 mg/dl (0.6-1.2) 09/24/25 06:58 Est Cr Clr Drug Dosing 48.0 ml/min 09/24/25 06:58 eGFR 61.70 09/24/25 06:58 BUN/Creatinine Ratio 19.8 (10-20) 09/24/25 06:58 Glucose 128 mg/dl (70-99(Fasting)) H 09/24/25 06:58 POC Glucose 173 mg/dl (70-99) H 09/24/25 12:06 Calcium 8.0 mg/dl (8.6-10.3) L 09/24/25 06:58 Phosphorus 2.7 mg/dl (2.5-4.9) 09/24/25 06:58 Magnesium 1.5 mg/dl (1.7-2.4) L 09/24/25 06:58 Total Bilirubin 0.3 mg/dl (0.2-1.0) 09/24/25 06:58 AST 26 U/L (13-39) 09/24/25 06:58 ALT 24 U/L (7-52) 09/24/25 06:58 Alkaline Phosphatase 60 U/L (34-104) 09/24/25 06:58 Troponin I High Sens 6.5 pg/ml (0-14) 09/23/25 16:00 Total Protein 6.3 gm/dl (6.0-8.3) 09/24/25 06:58 Albumin 3.0 gm/dl (3.4-5.0) L 09/24/25 06:58 Globulin 3.3 gm/dl (2.5-4.0) 09/24/25 06:58 Albumin/Globulin Ratio 0.9 (0.9-2) 09/24/25 06:58 Urine Comment 09/24/25 Unknown Adenovirus (PCR) Not Detected (NotDetected) 09/23/25 16:07 B. pertussis DNA (PCR) Not Detected (NotDetected) 09/23/25 16:07 B.parapertussis DNA PCR Not Detected (NotDetected) 09/23/25 16:07 C. pneumoniae DNA (PCR) Not Detected (NotDetected) 09/23/25 16:07 Coronavirus OC43 (PCR) Not Detected (NotDetected) 09/23/25 16:07 Coronavirus HKU1 (PCR) Not Detected (NotDetected) 09/23/25 16:07 Coronavirus 229E (PCR) Not Detected (NotDetected) 09/23/25 16:07 SARS-CoV-2 (PCR) Not Detected (NotDetected) 09/23/25 16:07 Coronavirus NL63 (PCR) Not Detected (NotDetected) 09/23/25 16:07 Human Metapneumovir PCR Not Detected (NotDetected) 09/23/25 16:07 Influenza A (H3) PCR DETECTED (NotDetected) A 09/23/25 16:07 Influenza Type B (PCR) Not Detected (NotDetected) 09/23/25 16:07 M. pneumoniae (PCR) Not Detected (NotDetected) 09/23/25 16:07 Parainfluenza 1 (PCR) Not Detected (NotDetected) 09/23/25 16:07 Parainfluenza 2 (PCR) Not Detected (NotDetected) 09/23/25 16:07 Parainfluenza 3 (PCR) Not Detected (NotDetected) 09/23/25 16:07 Parainfluenza 4 (PCR) Not Detected (NotDetected) 09/23/25 16:07 RSV (PCR) Not Detected (NotDetected) 09/23/25 16:07 Entero/Rhino (PCR) Not Detected (NotDetected) 09/23/25 16:07 Impressions Chest X-Ray 09/23/25 15:45 EXAM: Radiograph of the Chest 1 View INDICATION: Dyspnea and left shoulder pain. TECHNIQUE: Frontal view of the chest. COMPARISON: No relevant prior studies available. FINDINGS: Lungs and pleural spaces: No consolidation or pulmonary edema. No pleural effusion or pneumothorax. Heart: Shape and configuration within normal limits allowing for technique. Mediastinum: Normal contour. Bones/joints: Degenerative changes noted throughout the spine. No acute osseous abnormality seen. Soft tissues: No abnormality noted. No radiopaque foreign body noted. Vasculature: Mildly ectatic aorta with moderate arch calcification noted. Upper abdomen: No abnormality noted. IMPRESSION: No acute cardiopulmonary disease. ACT 112: N/A Electronically signed by Anisa Gatica 09-23-2025 6:07 PM Shoulder X-Ray 09/23/25 15:45 EXAM: Radiographs of the Left Shoulder Complete 3 Views INDICATION: Pain TECHNIQUE: AP, rotated and scapular Y views obtained COMPARISON: No relevant prior studies available. FINDINGS: Bones/joints: No fracture, erosion or dislocation. Soft tissues: No abnormality noted. No radiopaque foreign body noted. IMPRESSION: No abnormality noted. ACT 112: N/A Electronically signed by Anisa Gatica 09-23-2025 6:[address] 09/23/25 16:00 EXAM: CT Head Without Intravenous Contrast INDICATION: Periods of altered mental status. TECHNIQUE: Axial computed tomography images of the head/brain without intravenous contrast. Sagittal and/or coronal reformats are provided. Sagittal and coronal reformatted images were created and reviewed. This CT exam was performed using one or more of the following dose reduction techniques: automated exposure control, adjustment of the mA and/or kV according to patient size, and/or use of iterative reconstruction technique. COMPARISON: No relevant prior studies available. FINDINGS: Limitations: None. Brain and extra-axial spaces: There is age appropriate cortical atrophy and chronic ischemic periventricular white matter hypodensity. No acute infarct, hemorrhage or mass noted. Bones/joints: No acute changes. Soft tissues: No acute abnormality noted. Vasculature: Intracranial atherosclerotic calcification noted. Sinuses: Trace chronic maxillary sinus thickening. Mastoid air cells: No mastoid effusion. Orbits: No acute abnormality noted. IMPRESSION: Cerebral atrophy. No acute changes. ACT 112: N/A Electronically signed by Anisa Gatica 09-23-2025 6:52 PM Abdomen/Pelvis CT 09/23/25 18:18 Exam(s): CT ABDOMEN + PELVIS With Contrast IV Amt: 93 ml opti 320 EXAM: CT Abdomen and Pelvis With Intravenous Contrast CLINICAL HISTORY: Reason for exam: intractable vomiting. TECHNIQUE: Axial computed tomography images of the abdomen and pelvis with intravenous contrast. CTDI is 28.14 mGy and DLP is 1387.25 mGy-cm. Automated exposure control was utilized for the study. A dose lowering technique was utilized adhering to the principles of ALARA. CONTRAST: Patient received 93 ml [id number] of IV contrast COMPARISON: 04/27/2025 FINDINGS: Lung bases: See below. Heart: [id number] cardiomegaly and coronary calcification. There is edema and/or atelectasis in both lung bases. ABDOMEN: Liver: The liver is mildly enlarged measuring 18.2 cm craniocaudad. No focal liver mass lesion is seen. Gallbladder and bile ducts: 3 mm calcified gallstone within an otherwise unremarkable appearing gallbladder. No wall thickening or surrounding inflammation is seen. No biliary duct dilation or choledocholithiasis. Pancreas: Unremarkable. No mass. No ductal dilation. Spleen: Unremarkable. No splenomegaly. Adrenals: Unremarkable. No mass. Kidneys and ureters: Unremarkable. No solid mass. No hydronephrosis. Stomach and bowel: Unremarkable. No obstruction. No mucosal thickening. PELVIS: Appendix: The appendix is normal. Bowel loops are nondilated. No acute inflammatory changes are seen involving the bowel. Bladder: The urinary bladder is upper limits of normal measuring 15 cm long axis. Reproductive: Unremarkable as visualized. ABDOMEN and PELVIS: Intraperitoneal space: Smooth oval 3.5 cm cyst or follicle extending off the right ovary. No free fluid in the pelvis. No free air. Bones/joints: [id number] multilevel degenerative changes throughout the spine. No acute fracture or subluxation is seen. Soft tissues: Unremarkable. Vasculature: The abdominal aorta is mildly calcified but nondilated. There is no aneurysm or dissection. Lymph nodes: Unremarkable. No enlarged lymph nodes. IMPRESSION: 1. [id number] cardiomegaly and coronary calcification. There is edema and/or atelectasis in both lung bases. 2. The urinary bladder is upper limits of normal measuring 15 cm long axis. If the patient is unable to void, consider urinary retention. 3. The appendix is normal. Bowel loops are nondilated. No acute inflammatory changes are seen involving the bowel. No acute inflammatory process is seen within the abdomen or pelvis. Electronically signed by: Dung Parikh MD 09/23/25 22:51 PM Medications Administered Current Inpatient Medications Acetaminophen (Acetaminophen 500 Mg Tab) 1,000 mg PO Q8H PRN PRN Reason: Fever,pain Stop: 10/23/25 22:00 Last Admin: 09/24/25 09:44 Dose: 1,000 mg Al Hydrox/Mg Hydrox/Simethicone (Aluminum/Magnesium Susp 30 Ml Udc) 15 ml PO Q6H PRN PRN Reason: Dyspepsia Stop: 10/24/25 12:05 Albuterol (Albuterol 0.083% Nebu Soln 3 Ml Vial) 2.5 mg NEB Q6H PRN; Protocol PRN Reason: Shortness Of Breath Or Wheezing Stop: 10/23/25 20:51 Last Admin: 09/24/25 09:36 Dose: 2.5 mg Albuterol (Albuterol Hfa 8 Gm Inhaler) 2 puffs INH Q4 PRN PRN Reason: Wheezing Stop: 10/23/25 22:22 Allopurinol (Allopurinol 100 Mg Tab) 100 mg PO DAILY RADAMES Stop: 10/24/25 08:59 Last Admin: 09/24/25 09:28 Dose: 100 mg Aripiprazole (Aripiprazole 2 Mg Tab) 4 mg PO QAM RADMAES Stop: 10/24/25 08:59 Last Admin: 09/24/25 09:28 Dose: 4 mg Atorvastatin Calcium (Atorvastatin 10 Mg Tab) 10 mg PO DAILY RADAMES Stop: 10/24/25 08:59 Last Admin: 09/24/25 09:28 Dose: 10 mg Famotidine (Famotidine 40 Mg Tablet) 40 mg PO HS RADAMES Stop: 10/23/25 22:22 Last Admin: 09/23/25 23:25 Dose: 40 mg Gabapentin (Gabapentin 300 Mg Cap) 300 mg PO BID [facility] Stop: 10/23/25 22:22 Last Admin: 09/24/25 09:28 Dose: 300 mg Guaifenesin/Dextromethorphan (Guaifenesin/Dextrom Syrup 200mg/20mg 10ml Udc) 10 ml PO Q6H PRN PRN Reason: Cough Stop: 10/23/25 20:51 Heparin Sodium (Porcine) (Heparin Sod 5,000 Unit/0.5 Ml Vial) 5,000 units SQ Q12 [facility] Stop: 10/23/25 20:59 Last Admin: 09/24/25 09:40 Dose: 5,000 units Hydralazine HCl (Hydralazine Hcl 20 Mg/Ml Vial) 5 mg IV Q6H PRN PRN Reason: Blood Pressure - High Stop: 10/23/25 20:44 Sodium Chloride (Nss) 1,000 mls @ 125 mls/hr IV .Q8H [facility] Stop: 09/24/25 19:59 Last Admin: 09/24/25 08:04 Dose: 125 mls/hr Insulin Aspart (Insulin Aspart Per Unit Charge) 14 units SQ QDB [facility] Stop: 10/24/25 07:29 Last Admin: 09/24/25 09:27 Dose: 14 units Insulin Aspart (Insulin Aspart Per Unit Charge) 20 units SQ QDL [facility] Stop: 10/24/25 11:29 Last Admin: 09/24/25 12:14 Dose: 20 units Insulin Aspart (Insulin Aspart Per Unit Charge) 22 units SQ QDD [facility] Stop: 10/24/25 16:29 Insulin Glargine (Lantus Per Unit Charge) 20 units SQ HS [facility] Stop: 10/23/25 22:29 Last Admin: 09/23/25 23:24 Dose: 20 units Levothyroxine Sodium (Levothyroxine Sodium 75 Mcg Tablet) 75 mcg PO DAILYBB [facility] Stop: 10/24/25 06:29 Last Admin: 09/24/25 07:15 Dose: Not Given Ondansetron HCl (Ondansetron Inj 2 Mg/Ml 2 Ml Vial) 4 mg IV Q6H PRN PRN Reason: Nausea And Vomiting Stop: 10/23/25 20:51 Pantoprazole Sodium (Pantoprazole 40 Mg Tab) 40 mg PO DAILY [facility] Stop: 10/24/25 08:59 Last Admin: 09/24/25 09:28 Dose: 40 mg Vitamin D (Cholecalciferol 25 Mcg (1000 Units) Tab) 50 mcg PO DAILY RADAMES Stop: 10/24/25 08:59 Last Admin: 09/24/25 09:28 Dose: 50 mcg
[2025-09-24] MEDS: cefTRIAXone SODIUM 1,000 MG/50 ML BAG IV STA (14:19)
[2025-09-24 14:42] VITALS: BP 95/58; PULSE 68; TEMP 98.8; O2SAT 96
[2025-09-24] MEDS ORDERED: INSULIN ASPART PER UNIT CHARGE SQ SCH (16:30)
--- NOTE | 2025-09-24 17:58 | Discharge Summary ---
Date of Service September 24, 2025 Admission HPI Per Admitting Provider She is a 75-year-old female with significant past medical history of type 2 diabetes on insulin, hyperlipidemia, hypothyroidism, hypertension, diastolic dysfunction, obesity, GERD, chronic kidney disease stage III AA, PMR, osteoarthritis, chronic anemia, depression and also history of infiltrating ductal carcinoma of the breast who is status post bilateral mastectomy and bilateral sentinel node biopsy by Dr. Denys Sterling on 04/27/2025 apparently has been complaining of weakness, tiredness, aches and pain involving all of the body and the abdomen, cough with shortness of breath and change in mental status that happened since this morning. She was noted to have wheezing with rhonchi on chest examination and dehydration and [employer] noted to be positive for flu. denies any fever and/or chills and denies any problem with urine or bowel of it but has been complaining of nausea and vomiting. since this morning Admission Exam Per Admitting Provider Physical Exam: lying in bed with acute distress due to wheezing cough and Constitutional: well developed, well nourished, + ill appearing and + obese Eyes: PERRL, conjunctivae normal, anicteric sclerae ENMT: external ear and nose normal, oropharynx normal Neck: trachea midline, no thyromegaly Respiratory: + respiratory distress ( minimal distres s) Auscultation: + diminished lung sounds, + crackles ( minimal bibasilar crackles) and + wheezes ( anterior wheezing) Cardiovascular: Rate/Rhythm: regular rate and regular rhythm; not tachycardic Heart Sounds: normal S1 and normal S2; no murmur Extremities: + edema ( trace edema bilaterally) Gastrointestinal (Abdomen): Inspection/Auscultation: + abdomen distended ( mildly tender all over no guarding and no rigidity) and normal bowel sounds Percussion/Palpation: + abdomen tender ( mildly tender all over) and abdomen soft Musculoskeletal: no acute arthritis involving any of the joint Neurologic: normal touch/pain/proprioception and moves all extremities; no focal motor deficits Lymphatic: no cervical or axillary lymphadenopathy Principal Diagnosis Influenza A, possible UTI Discharge Exam lying in bed with acute distress due to wheezing cough and Constitutional well developed, well nourished, + ill appearing and + obese Eyes PERRL, conjunctivae normal, anicteric sclerae ENMT external ear and nose normal, oropharynx normal Neck trachea midline, no thyromegaly Respiratory + respiratory distress ( minimal distress) Auscultation: + diminished lung sounds, + crackles ( minimal bibasilar crackles) and + wheezes ( anterior wheezing) Cardiovascular Rate/Rhythm: regular rate and regular rhythm; not tachycardic Heart Sounds: normal S1 and normal S2; no murmur Extremities: + edema ( trace edema bilaterally) Gastrointestinal (Abdomen) Inspection/Auscultation: + abdomen distended ( mildly tender all over no guarding and no rigidity) and normal bowel sounds Percussion/Palpation: + abdomen tender ( mildly tender all over) and abdomen soft Neurologic normal touch/pain/proprioception and moves all extremities; no focal motor deficits Lymphatic no cervical or axillary lymphadenopathy Discharge Data Allergies Allergy/AdvReac Type Severity Reaction Status Date / Time No Known Allergies Allergy Verified 08/09/25 08:20 Consultations 09/23/25 19:11 ED Decision to Admit Stat Ordered Studies 09/23/25 16:00 CT head/brain wo con Stat 09/23/25 18:18 CT abd pelvis IV con only Stat Hospital Course (1) Influenza A: Cough with wheezing and shortness of breath, generalized bodyaches , since this morning [employer] is positive for influenza A Started on Tamiflu Symptomatic medications for cough, wheezing and nausea vomiting Clinically much better and has minimal cough and minimal wheezing She has been saturating normally on room air Will get PT and OT evaluation and possible discharge this afternoon (2) OZIEL (acute kidney injury): Likely secondary to dehydration Will give cautious amount of intravenous fluid and was advised to drink more fluid Will hold MATEO inhibitor Check PRP tomorrow morning Creatinine has been normalized, IV fluid will be stopped and she was advised to drink more fluid (3) HTN (hypertension): Blood pressure remains stable Her blood pressure remains controlled (4) Type 2 diabetes mellitus: Will continue current insulin doses and put her on sliding scale insulin coverage as well (5) Hyperlipidemia: continue statin (6) Hypothyroid: Continue thyroid replacement (7) GERD (gastroesophageal reflux disease): Continue PPI Complains of abdominal pain and nausea vomiting Awaiting CT reportCT of the abdomen pelvis did not show any significant findings Given her abdominal discomfort will add Maalox as needed for dyspepsia (8) Anxiety and depression: Remains stable (9) Myofascial pain syndrome of lumbar spine: Complaining generalized aches and pains Complicated by influenza A (10) S/P mastectomy, bilateral: Has not been taking any medications Complains of anorexia and weight loss was advised to see oncologist as an outpatient Plan DVT prophylaxissubcu heparin CODE STATUSfull code Discussed with the family members Total Time Total Time Spent Total Time Spent (In Minutes): 35 Minutes Discharge Plan Discharge Items Patient Disposition: Home - Self-Care Reason For Visit: CHANGE IN MENTAL STATUS, FLU Discharge Diagnosis: Influenza A, possible UTI Condition on Discharge: Fair Activity: Resume your previous activity Non-emergency contact: Primary Care Provider Call non-emergency contact if: you have any medication questions Follow-up/Referrals: Jo Sainz, [Primary Care Provider] - (Please make an appointment with your PCP within 7 days) Diet: Carb Consistent or DM2 Diet Texture: Easy to Chew Addtl Attending Provider Instructions: Please take precautions to avoid falls Finish the course of Tamiflu and antibiotic Drink more fluid to avoid dehydration and also to avoid kidney failure Try to use less of your narcotic pain medication to avoid confusion, constipation and drowsiness and also addiction Try [id number] cough suppressants like Robitussin DM Pending Studies at Discharge: Yes Studies:: urine culture Stand-Alone Forms: My [facility] [place] [employer], Smoking Cessation Medications and DC Order Prescriptions: New cephalexin 500 mg capsule 500 mg PO BID 5 Days Qty: 10 0RF oseltamivir [Tamiflu] 30 mg capsule 30 mg PO BID 5 Days Qty: 10 0RF Continued gabapentin 300 mg capsule 300 mg PO TID Qty: 270 3RF Euflexxa 10 mg/mL(mw 2.4 -3.6 million) syringe See Rx Instructions .ROUTE .COMPLEX Patient Comments: injected per ortho Rx Instructions: injection per ortho metformin 500 mg tablet 500 mg PO BID atorvastatin 10 mg tablet 10 mg PO DAILY lisinopril 20 mg tablet 20 mg PO DAILY allopurinol 100 mg tablet 100 mg PO DAILY omeprazole 40 mg capsule,delayed release(DR/EC) 40 mg PO DAILY levothyroxine 50 mcg tablet 75 mcg PO DAILY insulin aspart U-100 100 unit/mL (3 mL) insulin pen See Rx Instructions .ROUTE .COMPLEX Patient Comments: per pt's daughter in law: 14 breakfast, 20 lunch, 22 dinner Rx Instructions: 14 breakfast, 20 lunch, 22 dinner insulin glargine [Lantus Solostar U-100 Insulin] 100 unit/mL (3 mL) insulin pen 20 unit SUBCUT HS furosemide 20 mg tablet 20 mg PO BID albuterol sulfate 90 mcg/actuation HFA aerosol inhaler 2 puff INHALATION Q4 PRN (Reason: Wheezing) cholecalciferol (vitamin D3) 50 mcg (2,000 unit) Capsule 50 mcg PO DAILY oxycodone-acetaminophen 5-325 mg tablet 1 tab PO Q6H PRN (Reason: pain) Qty: 12 0RF famotidine 20 mg tablet 40 mg PO HS aripiprazole 2 mg tablet 4 mg PO QAM Discharge Orders: Discharge Order (Routine); Ordered 09/24/25 Ordered By: Rufino Andrews/Other Patient Handouts: Oseltamivir Oral Capsule, Cephalexin Oral Cap lul Admission Data Admit Date/Time: 09/23/25 19:46 Attending Provider: Rufino Bertrand Admit Provider: Rufino Bertrand Primary Care Provider: Jo Sainz Other Providers: Rufino Bertrand Other Interventions: Discharge Summary Assessment (RN) Last Done: 09/24/25 15:17
--- NOTE | 2025-09-27 10:30 | Electrocardiogram Report ---
Test Reason : Blood Pressure : */* mmHG Vent. Rate : 90 BPM Atrial Rate : 90 BPM P-R Int : 176 ms QRS Dur : 124 ms QT Int : 396 ms P-R-T Axes : 28 62 36 degrees QTcB Int : 484 ms Sinus rhythm with Premature supraventricular complexes and with occasional Premature ventricular comp lexes Right bundle branch block Inferior infarct , age undetermined Abnormal ECG When compared with ECG of 18-Apr-2023 10:23, Premature ventricular complexes are now Present Right bundle branch block is now Present Inferior infarct is now Present Confirmed by Jordyn Ellis (Ailyn) on 09/27/2025 10:29:52 AM Referred By: REFERRED SELF Confirmed By: Jordyn Ellis
== END 2025-09-24 16:45 | disposition home or self-care (01) | DRG 194 ==
LOC: ED 15:37 → 2W 19:46